=== PATIENT | female | born 1970 | race Caucasian/White ===

== ENCOUNTER 2022-05-03 10:45 | Outpatient (RCR) | payer OTHER, SELFPAY | END 2022-06-30 15:08 | disposition home or self-care (01) | PROVIDERS: PCP Family Medicine; Visit Provider Orthopaedic Surgery | DX: M25.562 Pain in left knee (principal); Z51.89 Encounter for other specified aftercare | CPT/HCPCS: 97110; 97140; 97162 ==

== ENCOUNTER 2022-05-12 10:37 | Outpatient (CLI) | payer OTHER, SELFPAY | END 2022-05-12 10:38 | disposition home or self-care (01) | LOC: OP CLINIC 10:38 | PROVIDERS: PCP Family Medicine; Visit Provider Surgery | DX: Z12.11 Encounter for screening for malignant neoplasm of colon (principal); K63.5 Polyp of colon; K62.1 Rectal polyp; Z83.71 Family history of colonic polyps | CPT/HCPCS: 45385; 88305; 99153; J1200; J2250; J3010 ==

== ENCOUNTER 2022-05-17 19:09 | Outpatient (CLI) | payer OTHER, SELFPAY ==
--- NOTE | 2022-05-17 19:30 | CRLHL7_ITS ---
For Patients: As a result of the Century Cures Act, medical imaging exams and procedure reports are released immediately into your electronic medical record. You may view this report before your referring provider. If you have questions, please contact your health care provider. BILATERAL SCREENING MAMMOGRAM WITH COMPUTER-AIDED DETECTION TECHNIQUE: CC and MLO views were obtained. These mammographic images have been obtained using full-field digital technique. These mammographic images were interpreted with the benefit of computer-aided detection. COMPARISON FILM: 10/24/19, 12/18/17, 03/09/16. FINDINGS: There are scattered areas of fibroglandular density IMPRESSION: There is no radiographic evidence for malignancy. ASSESSMENT: BI-RADS Category 1: Negative RECOMMENDATION: Routine screening mammogram in 1 year. A lay language report of this examination will be provided to the patient. Fouzia Sanchez M.D. Diagnostic/Breast Radiologist [email or web address] KERRI/Dictated by: Fouzia Sanchez MD @ 05/18/2022 8:48:00 AM (Electronically Signed)
== END 2022-05-17 19:10 | disposition home or self-care (01) ==
LOC: MAMMO 19:09
PROVIDERS: PCP Family Medicine; Visit Provider Family Medicine
DX: Z12.31 Encounter for screening mammogram for malignant neoplasm of breast (principal)
CPT/HCPCS: 77063; 77067

== ENCOUNTER 2023-07-03 09:43 | Outpatient (CLI) | payer OTHER, SELFPAY ==
--- NOTE | 2023-07-03 11:09 | W.ANESCHARGE ---
Anesthesia Charges Start Date/Time Anesthesia Start Date: 07/03/23 Anesthesia Start Time: 11:00 Stop Date/Time Anesthesia Stop Date: 07/03/23 Anesthesia Stop Time: 12:00
--- NOTE | 2023-07-03 12:15 | W.ANESCHARGE ---
Anesthesia Charges Start Date/Time Anesthesia Start Date: 07/03/23 Anesthesia Start Time: 11:00 Stop Date/Time Anesthesia Stop Date: 07/03/23 Anesthesia Stop Time: 12:00
== END 2023-07-03 09:44 | disposition home or self-care (01) ==
PROVIDERS: PCP Family Medicine; Visit Provider Surgery
DX: Z86.010 Personal history of colon polyps (principal); Z09 Encounter for follow-up examination after completed treatment for conditions other than malignant neoplasm
CPT/HCPCS: 00811; 45378; J2405; J2704

== ENCOUNTER 2023-07-04 12:50 | Emergency (ER) | payer OTHER, SELFPAY ==
--- NOTE | 2023-07-04 13:06 | ED_ITS ---
HPI - General Adult General Time Seen by Provider: 13:06 Date Seen: 07/04/23 Chief complaint: GI Bleed Stated complaint: Post colonoscopy bleeding Time Seen by Provider: 07/04/23 12:53 History of Present Illness HPI narrative: Liseth is a 53-year-old female, with depression anxiety, 4 sessile serrated adenomas removed by colonoscopy here 05/05, iron deficiency anemia, migraine headaches, chronic constipation presents emergency department via private car and self with post colonoscopy bleeding. Patient states she had a colonoscopy done here yesterday, no biopsies were taken, proximal descending colon there was a subcutaneous hematoma, patient went home, since then patient has had rectal bleeding on every bowel movement, measuring around 1 cup since yesterday, no clots, originally it was bright red now it is darker, last bowel movement was 07/02, she has not had a bowel movement, she has urge to go, but only blood no bowel movement. She has not been passing gas. Patient has been feeling a little lightheaded this morning, she has been eating and drinking but less. No associated nausea vomiting, normal urinary habits. No fevers. No back pain, she has had some left upper quadrant tenderness, crampy in nature since the colonoscopy. Last years colonoscopy she did not have this much bleeding. She also has a left-sided migraine developing. No other concerns at this time. Related Data Home Medications Medication Instructions Recorded Confirmed buspirone 10 mg tablet 10 mg PO BID 03/25/22 07/04/23 multivitamin 1 tab PO QDAY 03/25/22 07/04/23 quetiapine 25 mg tablet 12.5 mg PO QDAY 03/25/22 07/04/23 venlafaxine 75 mg capsule,extended 1 mg PO DAILY 03/25/22 07/04/23 release 24 hr Previous Rx's Medication Instructions Recorded hydrocortisone 2.5 % topical cream 1 applic [place] BID PRN itching #30 04/07/22 with perineal applicator grams (Anusol-HC) montelukast 10 mg tablet 10 mg PO .Bedtime #90 tabs 04/03/23 Allergies Allergy/AdvReac Type Severity Reaction Status Date / Time morphine Allergy Intermediate internal Verified 07/04/23 13:05 itch Review of Systems Status of ROS: Reports: 10 or more systems reviewed and unremarkable except as noted in History and below [facility] Medical History Swelling of lower extremity ?M79.89 - Other specified soft tissue disorders (ICD-10) Migraine headache ?G43.909 - Migraine, unspecified, not intractable, without status migrainosus (ICD-10) Insomnia ?G47.00 - Insomnia, unspecified (ICD-10) History of iron deficiency anemia ?Z86.2 - Personal history of diseases of the blood and blood-forming organs and certain disorders involving the immune mechanism (ICD-10) Elevated blood pressure reading without diagnosis of hypertension (2019) ?R03.0 - Elevated blood-pressure reading, without diagnosis of hypertension (ICD-10) Depression (03/06/13) ?F32.A - Depression, unspecified (ICD-10) Chronic pain (07/2020) ?G89.29 - Other chronic pain (ICD-10) Chronic constipation ?K59.09 - Other constipation (ICD-10) Basal cell carcinoma (BCC) (2001) ?C44.91 - Basal cell carcinoma of skin, unspecified (ICD-10) Anxiety disorder ?F41.9 - Anxiety disorder, unspecified (ICD-10) Surgical History (Updated 07/04/23 @ 15:47 by Serafin Prado MD) History of tonsillectomy (1972) ?Z90.89 - Acquired absence of other organs (ICD-10) History of left knee replacement (2015) ?Z96.652 - Presence of left artificial knee joint (ICD-10) History of section (2001) ?Z98.891 - History of uterine scar from previous surgery (ICD-10) Basal cell carcinoma of face (2002) ?C44.310 - Basal cell carcinoma of skin of unspecified parts of face (ICD-10) Family History (Updated 03/24/22 @ 16:19 by Matt Hong) Mother Alzheimers disease Type 2 diabetes mellitus Maternal Grandmother Type 1 diabetes mellitus Family/Other Fibromyalgia Mental disorder Father Myocardial infarction, Onset Age: 70 Brother Osteoarthritis Other Uterine cancer Social History (Updated 06/23/23 @ 16:03 by Huma Johnson MD) Narrative: , [employer] [place], 2 kids, older CP, ADHD exercises 3-4 times per week- stationary bike, yoga non-smoker does not drink alcohol Smoking Status: Never smoker Do you use any of these nicotine containing products: None Second hand tobacco smoke exposure: No How often do you have a drink containing alcohol: never How often do you have six or more drinks on one occasion: Never AUDIT-C Alcohol total score: 0 Non-prescribed substance use: denies use Little interest or pleasure in doing things: more than half the days Feeling down, depressed, or hopeless: several days service: No Exam Narrative: Exam Narrative: General: No obvious distress sitting comfortably, nontoxic in appearance HEENT: Pupils equal round reactive to light, extraocular muscles intact Neck: Supple full range of motion Lungs: Clear to auscultation bilaterally Heart: Normal sinus rhythm, S1-S2 Abdomen: Soft, mild tenderness to palpation the left upper quadrant area, bowel sounds are present, no rebound or guarding Muscle skeletal: +5 strength upper lower extremities Neuro: Alert awake and oriented x3 Const: Vital Signs, click to edit/add: Vital Signs - 24 hr 07/04/23 13:09 Temperature 98 F Pulse Rate [Pulse Oximeter] 91 Respiratory Rate 16 Blood Pressure [Ri ght Upper Arm] 171/105 H Pulse Oximetry 97 Oxygen Delivery Me thod Room Air Course Course ED Course: 1:15 PM: AIDET performed, vitals show mildly elevated blood pressure will continue to monitor, workup will include CBC, CMP, orthostatics, IV placed, 0.9 normal saline bolus, will hold on Toradol until hemoglobin returned for her pain, will obtain XR abdomen decubitus and flat upright rule out less likely perforation. Will also reach out to Dr. Real General surgery who performed the colonoscopy, Patient was in agreement. Differential diagnosis include but not limited to, upper or lower GI bleed, constipation, internal or external hemorrhoids, bowel perforation, less likely colitis, Meckel's diverticulum or malignancy. Reevaluation(s) Time of Reevaluation #1: 13:44 Reevaluation #1: Patient had a bowel movement during her stay in the emergency department, no stool, to small clots, minimal bleeding. Reevaluation #2: CBC showed hemoglobin stable at 11.0, no comparisons, metabolic panel within normal limits, imaging showed no acute free air, spoke with Dr. Real, general surgery, she reviewed imaging and labs, she recommended can you to monitor, this was discussed with patient, she received a above care and did well. Time of Reevaluation #3: 15:56 Reevaluation #3: At XR abdomen decubitus and flat upright: Impression: No acute findings. If there is ongoing clinical concern based on the patient`s clinical status, CT is suggested for further evaluation. Patient was updated on her imaging results, plan would be to discharge, blood pressure improved during her stay she will follow-up with her primary care provider over the next 7-10 days, return precautions given. Vital Signs Vital signs: Initial Vital Signs Temperature 98 F 07/04/23 13:09 Temperature Source Oral 07/04/23 13:09 Pulse Rate 91 07/04/23 13:09 Pulse Rhythm Regular 07/04/23 13:09 Pulse Strength 3+ Normal 07/04/23 13:09 Respiratory Rate 16 07/04/23 13:09 Blood Pressure 171/105 H 07/04/23 13:09 Blood Pressure Mean 127 H 07/04/23 13:09 Blood Pressure Position Sitting 07/04/23 13:09 Pulse Oximetry 97 07/04/23 13:09 Oxygen Delivery Method Room Air 07/04/23 13:09 Vital Signs Temperature 98 F 07/04/23 13:09 Pulse Rate 91 07/04/23 13:09 Respiratory Rate 16 07/04/23 13:09 Blood Pressure 171/105 H 07/04/23 13:09 Pulse Oximetry 97 07/04/23 13:09 Oxygen Delivery Method Room Air 07/04/23 13:09 Temperature 98 F 07/04/23 13:09 Pulse Rate 91 07/04/23 13:09 Respiratory Rate 16 07/04/23 13:09 Blood Pressure 171/105 H 07/04/23 13:09 Pulse Oximetry 97 07/04/23 13:09 Oxygen Delivery Method Room Air 07/04/23 13:09 Medications Administered Medications: Discontinued Medications Generic Name Dose Route Start Last Admin Trade Name Freq PRN Reason Stop Dose Admin Acetaminophen 1,000 mg 07/04/23 13:54 07/04/23 14:00 Acetaminophen 500 Mg Tablet PO 07/04/23 13:55 1,000 mg ONCE ONE Administration Medical Decision Making Lab Data Labs: Lab Results 07/04/23 Range/Units 13:34 WBC 5.64 (4.50-11.00) K/uL RBC 3.89 L (4.00-5.20) m/uL Hgb 11.0 L (12.0-16.0) gm/dL Hct 34.6 (33.0-51.0) % MCV 89 (80-100) fL MCH 28 (26-34) pg MCHC 32 (32-36) gm/dL RDW Coeff of Sindi 15.0 (11.5-15.5) % Plt Count 279 (140-440) K/uL Neut % (Auto) 59.4 (42.0-72.0) % Lymph % (Auto) 32.8 (20-44) % [place] % (Auto) 6.0 (0.0-11.0) % Eos % (Auto) 1.4 (0.0-7.0) % Baso % (Auto) 0.4 (0.0-3.0) % Neut # (Auto) 3.35 (1.7-7.0) K/uL Lymph # (Auto) 1.85 (0.90-2.90) K/uL [place] # (Auto) 0.30 (0.00-0.90) K/UL Eos # (Auto) 0.08 (0.00-0.50) K/uL Baso # (Auto) 0.02 (0.00-0.30) K/uL Abs Immat Gran (auto) 0.00 (0.00-0.30) K/uL Imm/Tot Granulo (auto) 0.0 % Sodium 141 (135-149) mmol/L Potassium 3.6 (3.6-5.1) mmol/L Chloride 104 (96-114) mmol/L Carbon Dioxide 26 (20-32) mmol/L Anion Gap 11 (7-15) mEq/L BUN 9 (7-30) mg/dL Creatinine 0.6 (0.5-1.5) mg/dL Estimated Creat Clear 103.02 Estimated GFR 106 ml/min Glucose 145 H (60-115) mg/dL Calcium 9.2 (8.4-10.6) mg/dL Total Bilirubin 0.2 (0.1-1.5) mg/dL AST 47 H (12-35) U/L ALT 36 H (4-35) U/L Alkaline Phosphatase 87 (40-150) U/L Total Protein 7.2 (6.0-8.3) g/dL Albumin 4.5 (3.3-5.0) g/dL Discharge Plan Discharge Clinical Impression: Rectal bleeding, History of colonoscopy Patient Disposition: Home, Self-Care Condition: Improved Instructions: Rectal Bleeding (ED) Activity Level: No Restrictions Prescriptions: No Action venlafaxine 75 mg capsule,extended release 24hr 1 mg PO DAILY multivitamin Tablet 1 tab PO QDAY buspirone 10 mg tablet 10 mg PO BID quetiapine 25 mg tablet 12.5 mg PO QDAY hydrocortisone [Anusol-HC] 2.5 % cream with perineal applicator 1 applic AK BID PRN (Reason: itching) Qty: 30 3RF montelukast 10 mg tablet 10 mg PO .Bedtime Qty: 90 0RF Follow Up/Referrals: Huma Johnson MD [Primary Care Provider] - Stand Alone Forms: [email or web address] Info Instructions
[2023-07-04 13:09] VITALS: BP 171/105; PULSE 91; RESP 16; TEMP 36.6; O2SAT 97; BMI 25.1
--- NOTE | 2023-07-04 13:23 | CRLHL7_ITS ---
For Patients: As a result of the Century Cures Act, medical imaging exams and procedure reports are released immediately into your electronic medical record. You may view this report before your referring provider. If you have questions, please contact your health care provider. Indication: Recent colonoscopy, free air (sic) Technique: Two views Comparison: None Findings: Nondilated bowel. No evidence of pneumoperitoneum on this radiographic examination of the abdomen. Clear lung bases. Unremarkable osseous structures. No pathologic calcifications. Impression: No acute findings. If there is ongoing clinical concern based on the patient`s clinical status, CT is suggested for further evaluation. Dictated by Rehan Hanna MD @ 07/04/2023 2:53:11 PM (Electronically Signed)
[2023-07-04 13:43] LABS: Basophils Absolute Auto 0.02 K/uL (0.00-0.30); Basophils Percent Auto 0.4 % (0.0-3.0); Eosinophils Absolute Auto 0.08 K/uL (0.00-0.50); Eosinophils Percent Auto 1.4 % (0.0-7.0); Hematocrit 34.6 % (33.0-51.0); Lymphocytes Absolute Auto 1.85 K/uL (0.90-2.90); Lymphocytes Percent Auto 32.8 % (20-44); Mean Corpuscular HGB Conc 32 gm/dL (32-36); Mean Corpuscular Hemoglobin 28 pg (26-34); Mean Corpuscular Volume 89 fL (80-100); Neutrophils Absolute Auto 3.35 K/uL (1.7-7.0); Neutrophils Percent Auto 59.4 % (42.0-72.0); Platelet Count* 279 K/uL (140-440); Red Blood Count 3.89 m/uL (4.00-5.20); Slide Review Reflex No; White Blood Count* 5.64 K/uL (4.50-11.00)
[2023-07-04 13:55] LABS: Albumin* 4.5 g/dL (3.3-5.0); Chloride* 104 mmol/L (96-114); Potassium* 3.6 mmol/L (3.6-5.1); Sodium* 141 mmol/L (135-149)
[2023-07-04 13:57] LABS: Bilirubin Total* 0.2 mg/dL (0.1-1.5); Creatinine* 0.6 mg/dL (0.5-1.5); Est. Creatinine Clearance* 103.02; Estimated Glomerular Filt Rate 106 ml/min
[2023-07-04 13:58] LABS: Alanine Aminotransferase* 36 U/L (4-35); Alkaline Phosphatase* 87 U/L (40-150); Anion Gap 11 mEq/L (7-15); Aspartate Amino Transferase* 47 U/L (12-35); Blood Urea Nitrogen* 9 mg/dL (7-30); Calcium* 9.2 mg/dL (8.4-10.6); Carbon Dioxide* 26 mmol/L (20-32); Glucose* 145 mg/dL (60-115); Total Protein* 7.2 g/dL (6.0-8.3)
[2023-07-04] MEDS: ACETAMINOPHEN 500 MG TABLET 1000 MG PO (14:00)
== END 2023-07-04 16:10 | disposition home or self-care (01) ==
PROVIDERS: Emergency Provider Student in an Organized Health Care Education/Training Program; PCP Family Medicine
DX: K62.5 Hemorrhage of anus and rectum (principal)
CPT/HCPCS: 36415; 74019; 80053; 85025; 99283; 99284; A9270

== ENCOUNTER 2023-07-12 08:24 | Outpatient (CLI) | payer OTHER, SELFPAY ==
--- NOTE | 2023-07-12 09:00 | CRLHL7_ITS ---
For Patients: As a result of the Century Cures Act, medical imaging exams and procedure reports are released immediately into your electronic medical record. You may view this report before your referring provider. If you have questions, please contact your health care provider. INDICATION: Bloating. Constipation. Recent incomplete colonoscopy. Possible hematoma in the descending colon. TECHNIQUE: Contrast-enhanced CT of the abdomen and pelvis. 79 cc Isovue administered. FINDINGS: Clear included lung bases. The liver, spleen, pancreas, gallbladder, both adrenal glands and kidneys are within normal limits. Normal caliber abdominal aorta and iliac arteries. Normal inferior vena cava. No ascites or lymphadenopathy. The urinary bladder is largely decompressed. The uterus is unremarkable. There appears to be a moderately large posterior right adnexal cyst, image 107 series 2, presumably a functional or physiologic ovarian cyst measuring 3.8 x 5.3 cm. Ultrasound might be helpful for further characterization. There is a large amount of colonic stool indicating constipation. Either in or near the splenic flexure of the colon there is a focal area of mural thickening/edema, image 37 series 2, and image 29 series 4. This could reflect a hematoma from recent colonoscopy. Focal infection or inflammation would be difficult to exclude but there is no pericolonic fat stranding or fluid collection. No lymphadenopathy. The stomach and duodenum are unremarkable. No hernia. The included skeleton is unremarkable. These findings were discussed briefly with Dr. Stan Stevens at 4:15 on July 13, 2023. IMPRESSION: 1. Colonic constipation. 2. Focal area of mural edema or thickening in or near the splenic flexure or proximal descending colon may reflect mural hematoma. Localized infection or inflammation could not be entirely excluded on the basis of this scan alone. Clinically however it is more likely a hematoma. 3. 3.8 x 5.3 cm cyst posterior right hemipelvis likely of ovarian origin. Ultrasound would be helpful for further characterization. Please note that all CT scans at this facility use dose modulation, iterative reconstruction, and/or weight-based dosing when appropriate to reduce radiation dose to as low as reasonably achievable. Dictated by Marlon Bahena MD @ 07/13/2023 4:25:09 PM (Electronically Signed)
== END 2023-07-12 08:25 | disposition home or self-care (01) ==
LOC: CT 08:25
PROVIDERS: PCP Family Medicine; Visit Provider Surgery
DX: R14.0 Abdominal distension (gaseous) (principal); K59.00 Constipation, unspecified; N83.201 Unspecified ovarian cyst, right side; Z98.890 Other specified postprocedural states
CPT/HCPCS: 74177; Q9967

== ENCOUNTER 2023-07-25 17:00 | Outpatient (CLI) | payer OTHER, SELFPAY ==
--- NOTE | 2023-07-25 17:15 | CRLHL7_ITS ---
For Patients: As a result of the Cures Act, medical imaging exams and procedure reports are released immediately into your electronic medical record. You may view this report before your referring provider. If you have questions, please contact your health care provider. BILATERAL SCREENING MAMMOGRAM WITH COMPUTER-AIDED DETECTION AND TOMOSYNTHESIS TECHNIQUE: CC and MLO views were obtained. These mammographic images have been obtained using full-field digital technique. These mammographic images were interpreted with the benefit of computer-aided detection. Breast tomosynthesis was used in this interpretation. COMPARISON FILM: 05/17/22, 10/24/19, 12/18/17. FINDINGS: There are scattered areas of fibroglandular density. IMPRESSION: There is no radiographic evidence for malignancy. ASSESSMENT: BI-RADS Category 1: Negative RECOMMENDATION: Routine screening mammogram in 1 year. A lay language report of this examination will be provided to the patient. NESTOR BEAR M.D. Diagnostic Radiologist [email or web address] [email or web address] Transcribed: 07/26/2023, 6:[address]/Dictated by: Nestor Bear MD @ 07/26/2023 9:37:00 AM (Electronically Signed)
== END 2023-07-25 17:01 | disposition home or self-care (01) ==
LOC: MAMMO 17:01
PROVIDERS: PCP Family Medicine; Visit Provider Family Medicine
DX: Z12.31 Encounter for screening mammogram for malignant neoplasm of breast (principal)
CPT/HCPCS: 77063; 77067

== ENCOUNTER 2023-08-11 10:15 | Outpatient (CLI) | payer OTHER, SELFPAY | END 2023-08-11 10:16 | disposition home or self-care (01) | PROVIDERS: PCP Family Medicine; Visit Provider Family Medicine | DX: Z01.419 Encounter for gynecological examination (general) (routine) without abnormal findings (principal); D64.9 Anemia, unspecified; R73.9 Hyperglycemia, unspecified; R79.89 Other specified abnormal findings of blood chemistry; Z13.6 Encounter for screening for cardiovascular disorders | CPT/HCPCS: 80053; 80061; 82728; 84443 ==

== ENCOUNTER 2023-08-24 16:15 | Outpatient (CLI) | payer OTHER, SELFPAY ==
--- NOTE | 2023-08-24 16:00 | CRLHL7_ITS ---
For Patients: As a result of the Century Cures Act, medical imaging exams and procedure reports are released immediately into your electronic medical record. You may view this report before your referring provider. If you have questions, please contact your health care provider. INDICATION: Cyst seen on CT. TECHNIQUE: Transabdominal and transvaginal scanning was performed. Transvaginal scanning was performed to optimally evaluate the endometrium and adnexa. COMPARISON: Abdomen/pelvis CT of 07/12/2023 FINDINGS: The postmenopausal uterus is normal in size and shape. The uterus measures 7.9 x 3.2 x 4.4 cm. No uterine mass is evident. The endometrial stripe is normal in thickness at 2 mm. The left ovary is not visualized. A simple 6.3 x 4.7 x 3.6 cm right adnexal cyst is demonstrated. This is presumably ovarian in origin. This appears to be unchanged from the previous CT. A normal right ovary is not seen apart from this lesion. No adnexal mass is evident. No free fluid is demonstrated. IMPRESSION: Simple-appearing 6.3 x 4.7 x 3.6 cm right adnexal cyst, presumably ovarian. This lesion has not changed appreciably in comparison to the previous CT and is also most certainly benign. A four-month follow up ultrasound is recommended to assure stability. Dictated by Abel Haile MD @ 08/25/2023 2:18:22 PM (Electronically Signed)
--- OUTSIDE RECORDS SUMMARY | 2023-08-24 16:27 | XMS_ITS | Clinical Summary ---
Author Name Unknown Organization [facility] Address [address] [place] [address] Care Team Providers Care Medical And Scientific Illustrator Name Role Phone Amadna Santiago MD Primary Care Provider [phone] Source Comments You are receiving this document as you are listed as the primary care provider,follow-up provider, or the patient has been referred to you for consultation.This is in compliance with the Medicare and[facility] Hospital[facility] EHR Incentive Program,which states Providers who transition their patient to another setting of careor provider of care or refers their patient to another provider of care shouldprovide summary care record for each transition of care or referral. [employer] [facility] Allergies No known active allergies Medications Medication Sig Dispensed Refills Start Date End Date Status Magnesium Oxide 400 MGIndications:Von martinez without aura, without mention of intractable migraine without mention of status migrainosus Take 400 mg by mouth two times a day. 120 Tab 3 05/04/2010 Active amitriptyline (AKA ELAVIL) 25 MG tabletIndications :Migraine without aura, without mention of intractable migraine without mention of status migrainosus Take 1 Tab by mouth daily at bedtime. 30 Tab 6 05/04/2010 Active prochlorPERAZINE (AKA COMPAZINE) 25 MG suppositoryIndica tions:Migraine without aura, without mention of intractable migraine without mention of status migrainosus Insert 1 Suppository rectally every 12 hours as needed for Nausea and Vomiting. 12 Suppository 0 05/04/2010 Active fluoxetine (PROZAC) 20 MG capsule Take 3 Caps by mouth daily. 0 05/04/2010 Active sumatriptan (IMITREX) 100 MG tabletIndications :Migraine without aura, without mention of intractable migraine without mention of status migrainosus Take 1 Tab by mouth once as needed. Take at onset of headaches. May repeat X 1 in 2 hours if needed. Max 2 tabs/day or 4 tabs/wk. 12 Tab 0 07/17/2012 Active FLUoxetine (AKA PROZAC) 20 MG capsule Take 3 capsules by mouth daily (every 24 hours). LW Addl Instr:Indicated for: Depression 30 3 11/02/2010 Active traZODone (AKA DESYREL) 50 MG tablet Take 0.5-2 tablets by mouth nightly. LW Addl Instr:DENIED- NEEDS AN APPOINTMENT MADE DR SAXENA NO LONGER AT [facility] 1 0 09/22/2009 Active Multiple Vitamins-Minerals (MULTIVITAMIN OR) Take 1 tablet by mouth daily (every 24 hours). 0 10/30/2008 Active Lactobacillus (ACIDOPHILUS) daily as needed. 0 10/30/2008 Activ e fluoxetine (AKA PROZAC) 40 MG capsuleIndication s:Plantar fasciitis Take 40 mg by mouth 2 times daily. 0 02/25/2013 Active Active Problems Problem Noted Date Diagnosed Date Avulsion fracture of talus 02/07/2014 Immunizations Name Administration Dates Next Due Rubella 09/12/1994 Social History Tobacco Use Types Packs/Day Years Used Date Smoking Tobacco: Never Smokeless Tobacco: Never Sex and Gender Information Value Date Recorded Sex Assigned at Not on file Gender Identity Not on file Sexual Orientation Not on file Last Filed Vital Signs Vital Sign Reading Time Taken Comments Blood Pressure 114/68 05/04/2010 1:32 PM CDT Pulse 80 05/04/2010 1:32 PM CDT Temperature 36.8 ??C (98.2 ??F) 04/15/2008 7:06 PM CD T C: 36.8 C Respiratory Rate 14 04/15/2008 7:06 PM CDT Oxygen Saturation - - Inhaled Oxygen Concentration - - Weight 65.4 kg (144 lb 3.2 oz) 05/04/2010 1:32 P M CDT Height 170.8 cm (5' 7.25) 05/04/2010 1:32 PM CD T Body Mass Index 22.42 05/04/2010 1:32 PM CDT Plan of Treatment Health Maintenance Due Date Last Done Comments Cervical Cancer Screening Due 1968 Colon Cancer Screening Plan Due 1968 Hep C Screening (Preventive Services) 1968 HepB (1) 1968 Mammogram 1968 COVID-19 Vaccine (#1) 1968 HIV Screening (Preventive Services) 1984 Adult Preventive Visit 1986 Cholesterol 2013 Influenza (#1) 2023 05/25/2021, 11/0 11/2019, 05/08/2020, Additional history exists DTaP/Tdap/Td (4 - Tdap) 08/28/2029 08/28/19, 08/05/2015, 11/20/2008 Zoster/Shingles Completed 06/08/2019, 03/16/2019 HepA Aged Out No longer eligi ble based on patient's age to complete this topic Hib Aged Out No longer eligi ble based on patient's age to complete this topic IPV (Polio) Aged Out No longer eligi ble based on patient's age to complete this topic MCV4 Aged Out No longer eligi ble based on patient's age to complete this topic Pneumococcal Aged Out No longer eligi ble based on patient's age to complete this topic Care Teams Medical And Scientific Illustrator Relationship Specialty Start Date End Date Amanda Santiago MD [address] [place] [id number] PCP - General 09/02/14
== END 2023-08-24 16:16 | disposition home or self-care (01) ==
LOC: US 16:15
PROVIDERS: PCP Family Medicine; Visit Provider Family Medicine
DX: N83.201 Unspecified ovarian cyst, right side (principal)
CPT/HCPCS: 76830; 76856; 93976

== ENCOUNTER 2023-12-22 14:48 | Outpatient (CLI) | payer OTHER, SELFPAY ==
--- OUTSIDE RECORDS SUMMARY | 2023-12-22 14:51 | XMS_ITS | Clinical Summary ---
Author Name Unknown Organization [facility] Address [address] [place] [address] Care Team Providers Care Store Specialist Name Role Phone Amanda Santiago MD Primary Care Provider [phone] Source Comments You are receiving this document as you are listed as the primary care provider,follow-up provider, or the patient has been referred to you for consultation.This is in compliance with the Medicare andCity Hospital[facility] EHR Incentive Program,which states Providers who transition their patient to another setting of careor provider of care or refers their patient to another provider of care shouldprovide summary care record for each transition of care or referral. [facility] Allergies No known active allergies Medications Medication [...] capsule Take 3 Caps by mouth daily. 05/04/2010 Active sumatriptan (IMITREX) 100 MG tabletIndications [...] APPOINTMENT MADE DR SAXENA NO LONGER AT [facility] 1 09/22/2009 Active Multiple Vitamins-Minerals (MULTIVITAMIN OR) Take 1 tablet by mouth daily (every 24 hours). 10/30/2008 Active Lactobacillus (ACIDOPHILUS) daily as needed. 10/30/2008 Activ e fluoxetine (AKA PROZAC) 40 MG capsuleIndication s:Plantar fasciitis Take 40 mg by mouth 2 times daily. 02/25/2013 Active Active Problems Problem Noted Date [...] 1968 Hep C Screening (Preventive Services) 1968 Mammogram 1968 HIV Screening (Preventive Services) 1984 Adult Preventive Visit 1986 HepB (1) 1987 Cholesterol 2013 COVID-19 Vaccine ( season) 2023 05/29/2021, 11/05/2020, 10/15/2020 Influenza (Season Ended) 2024 021, 06/17/2020, 05/08/2020, Additional history exists DTaP/Tdap/Td (4 - [...] age to complete this topic Care Teams Store Specialist Relationship Specialty Start Date End Date Amanda Santiago MD [address] [place] [id number] PCP - General 09/02/14
--- OUTSIDE RECORDS SUMMARY | 2023-12-22 14:52 | XMS_ITS | Continuity of Care Document ---
Author Name Unknown Organization [facility] Address [address] [address] [place] [address] Phone Care Team Providers Care Power Mule Operator Name Role Phone Wayne Car MD Unavailable Unavailable Allergies, Adverse Reactions, Alerts Substance Reaction Status Criticality morphine ItchingItching Active No Informatio n Medications Medication Instructions Dosage Effective Dates (start - stop) Status Comments montelukast 10 mg tablet take 1 tablet by oral route every day in the evening 10 MG - Active venlafaxine ER 75 mg tablet,extended release 24 hr take 1 tablet by oral route every day in the morning at the same time each day with food 75 MG - Active venlafaxine ER 37.5 mg tablet,extended release 24 hr take 1 tablet by oral route every day in the morning at the same time each day with food 37.5 MG - Active buspirone 10 mg tablet take 1 tablet by oral route 2 times every day 1 tablet - Active Multiple Vitamin Tab take 1 tablet by ORAL route every day with food 1.00 tablet - Active Miralax 17 gram/dose Oral Powder take 8 Milligram (9.0667G) by ORAL route every day powder mixed with 8 oz. water, juice, soda, coffee, or tea 9.0667 G - Active Procedures Procedure Date Offic/outpt E&m [facility] Colonoscopy Flex; Dx (sep Pro) 11 Ugi Endo; W/bx 1/mx Level Iv-surg Path Gross/micro 11 Offic/outpt E&m [facility] Routine Serum Collection [id number] Advance Directives Directive Yes / No Effective Date File Name No Information Encounters Encounter Description Practice Location Reason(s) For Visit Diagnoses Date Provider Providers Copied on Encounter [facility], [address] [address], [place], [id number], [place] tel:[phone] [facility] No Information 4 Josep Black. [address] [facility] [address], [place], [id number], [place]. tel:[phone] Offic/outpt E&m [facility], [address] [address], [place], [id number], [place] tel:[phone] [facility] GI Symptoms or Concerns (chief complaint) Hx of colonic polypsEncoun ter for screening colonoscopy 3 Virgilio Eric. [address] [facility], [facility] [address], [place], [id number], [place]. tel:[phone] Referring Provider: Brea Fowler, [address] [facility] , [place], [address]. tel:[phone] [facility], [address] [address], [place], [id number], [place] tel:[phone] [facility] No Information 3 Red Chapa. [address] [facility], [facility] [address], [place], [id number], [place]. tel:[phone] [facility], [address] [address], [place], [id number], [place] tel:[phone] [facility] Iron Deficiency AnemiaIron Deficiency AnemiaConsti pation Unspecified 1 No Information Referring Provider: Ronnell Cramer, [address], [place], [address]. tel:[phone] Offic/outpt E&m [facility], [address] [address], [place], [place], [id number], tel:[phone] [facility] Iron DeficiencyAne nick (chief complaint)Con stipation (chief complaint)Hem orrhoids (chief complaint) Iron Deficiency AnemiaConsti pation UnspecifiedI nternal Hemorrhoids 1 Alexandro Fernandez. [address] [facility] [address], [place], [place], [id number], [place]. tel:[phone] Referring Provider: Ronnell Cramer, [address] [facility] [address], [place], [address]. tel:[phone] Family History Family Member Type Diagnosis Age At Onset First degree family history Problem (finding) No history of Ulcerative Colitis Father Problem (finding) Cancer, basal cell Father Problem (finding) Alcoholism First degree family history Problem (finding) No history of Cancer, colon Mother Problem (finding) Cancer, uterine First degree family history Problem (finding) No history of Crohn's Son Problem (finding) Celiac disease Daughter Problem (finding) Celiac disease Father Problem (finding) Cancer, skin First degree family history Problem (finding) malignant neoplasm of uterus First degree family history Problem (finding) No Family history of No history of Colon Polyps Immunizations Vaccine Date Status Comments Afluria Qd administered Note: [facility] bi-directional interface ; Source: Other Registry SARS-COV-2 (COVID-19) vaccin e, mRNA, spike protein, LNP, preservative free, dede-sucrose, 30 mcg/0.3 mL dose administered Note: [facility] bi-direct ional interface ; Source: Other Registry Afluria Qd administered Note: [facility] bi-directional interface ; Source: Other Registry SARS-COV-2 (COVID-19) vaccin e, mRNA, spike protein, LNP, bivalent, preservative free, 50 mcg/0.5 mL or 25 mcg/0.25 mL dose administered Note: [facility] bi-direct ional interface ; Source: Other Registry SARS-COV-2 (COVID-19) vaccin e, mRNA, spike protein, LNP, preservative free, 100 mcg/0.5mL dose or 50 mcg/0.25mL dose administered Note: [facility] bi -directional interface ; Source: Other Registry SARS-COV-2 (COVID-19) vaccin e, mRNA, spike protein, LNP, preservative free, 30 mcg/0.3mL dose administered Note: [facility] bi-direct ional interface ; Source: Other Registry Influenza, injectable, Madin Austin Canine Kidney, quadrivalent with preservative administered Note: [facility] bi- directional interface ; Source: Other Registry SARS-COV-2 (COVID-19) vaccin e, mRNA, spike protein, LNP, preservative free, 30 mcg/0.3mL dose administered Note: [facility] bi-direct ional interface ; Source: Other Registry SARS-COV-2 (COVID-19) vaccin e, mRNA, spike protein, LNP, preservative free, 30 mcg/0.3mL dose administered Note: [facility] bi-direct ional interface ; Source: Other Registry Afluria Qd administered Note: [facility] bi-directional interface ; Source: Other Registry Influenza administered Note: [facility] bi-d irectional interface ; Source: Other Registry tetanus toxoid, reduced diphtheria toxoid, and acellular pertussis vaccine, adsorbed administered Note: [facility] b i-directional interface ; Source: Other Registry zoster vaccine recombinant administered N ote: [facility] bi-directional interface ; Source: Other Registry zoster vaccine recombinant administered N ote: [facility] bi-directional interface ; Source: Other Registry Influenza administered Note: [facility] bi-d irectional interface ; Source: Other Registry Influenza administered Note: [facility] bi-d irectional interface ; Source: Other Registry tetanus toxoid, reduced diphtheria toxoid, and acellular pertussis vaccine, adsorbed administered Note: [facility] b i-directional interface ; Source: Other Registry Afluria Qd administered Note: [facility] bi-directional interface ; Source: Other Registry Influenza, seasonal, injecta ble, preservative free administered Note: [facility] bi-direct ional interface ; Source: Other Registry influenza virus vaccine, unspecified formulation administered Note: [facility] bi-di rectional interface ; Source: Other Registry influenza virus vaccine, yuliana e, attenuated, for intranasal use administered Note: [facility] bi- directional interface ; Source: Other Registry influenza virus vaccine, yuliana e, attenuated, for intranasal use administered Note: [facility] bi- directional interface ; Source: Other Registry Novel [id number], all formulations administered Note: [facility] bi-direct ional interface ; Source: Other Registry tetanus toxoid, reduced diphtheria toxoid, and acellular pertussis vaccine, adsorbed administered Note: [facility] b i-directional interface ; Source: Other Registry Influenza, seasonal, injectable administe red Note: [facility] bi- directional interface ; Source: Other Registry Influenza, seasonal, injectable administe red Note: [facility] bi- directional interface ; Source: Other Registry Influenza, seasonal, injectable administe red Note: [facility] bi- directional interface ; Source: Other Registry Influenza, seasonal, injectable administe red Note: [facility] bi- directional interface ; Source: Other Registry Influenza, seasonal, injectable administe red Note: [facility] bi- directional interface ; Source: Other Registry Influenza, seasonal, injectable administe red Note: [facility] bi- directional interface ; Source: Other Registry rubella virus vaccine administered Note: [facility] bi-directional interface ; Source: Other Registry Payers Payer name Insurance type Covered republican ID Demarco srinivasantoma(s) [facility] [id number] Social History Type Description Quantity Date Captured Comments Sex Female Smoking Status No Information Chief Complaint And Reason For Visit No Information Reason For Referral Reason For Referral No Information Plan Of Treatment Date Type Action Status Referral Ordered: Colonoscopy Appointment date/timeframe: 12/29/2023 ordered Appointment Teiken, Liseth BOOKED History Of Present Illness Encounter Date Complaint History Of Prese nt Illness GI Symptoms or Concerns I had th e pleasure of meeting Ms. Childers taken today in clinic for consultation at the request of Dr. Ronnell Lowry for evaluation of incomplete colonoscopy. She is a pleasant 53F with hx of colon polyps and constipation. It appears that patient had a piecemeal removal of large sessile adenoma in May 2022. We do not have official records / report of this procedure. Patient was able to pull pathology report (not the colonoscopy report) on her phone which showed 4 SSAs found proximal to the rectum with 2 SSAs >1cm (one was 12mm and one was 14mm). Patient subsequently had a surveillance colonoscopy on with Dr. Real at [facility]. The colon appeared to be normal except the procedure was incomplete due to significant looping and redundant colon. The proximal extent reached was at the hepatic flexure. Patient was subsequently referred to us for further evaluation and management.Per our records, Liseth did have a colonoscopy in 2010 with us which was done for constipation. The exam was complete with examination of the terminal ileum and entire colon without any abnormalities. She denies any family history of GI malignancy. No tobacco, alcohol or illicit drug use. She is otherwise healthy without any active chronic illnesses. Functional Status Date Functional Assessmen t No Information Instructions Date Instruction Additional Infor matfoster It was a pleasure me eting you, as we discussed:- We will refer you to have a double balloon enteroscopy for surveillance of colon polyps given your recent incomplete procedure- For constipation, you can try magnesium citrate or dulcolax to see if this helps in the short-term. Continue taking miralax daily.- Follow-up in clinic as needed. Related to Encounter for screening colonoscopy Assessments Type Assessment Date No Information Patient Care Teams Name Effective Dates (start - stop) Status Members No Information
--- NOTE | 2023-12-22 15:00 | US_ITS ---
Patient: JACKLYN MARQUEZ Facility:?[facility] Patient ID:?[id number] Site Patient ID:?[id number] Site :?[id number] Study:?US-Pelvis PELVIS TV-12/22/2023 3:19:51 PM Ordering Physician:?MAXIMILIANO BYRD M.D. Final Report: INDICATION: Follow-up right ovarian cyst COMPARISON: Ultrasound of the pelvis from 08/24/2023. FINDINGS: Transvaginal ultrasound examination of the female pelvis was performed. The uterus is anteverted with no evidence of mass. It measures 5.8 x 2.9 x 4.6 cm. The endometrial lining is normal in thickness at 2 mm. There is stable appearance of the moderate sized simple cyst in the right ovary measuring 5.1 x 3.7 x 5.6 centimeters, previously 6.3 x 3.6 x 4.7 centimeters. The ovary remains mildly enlarged, measuring 6.1 x 4.8 x 6.3 centimeters. The left ovary can not be identified. There is normal color and pulse doppler flow in the right ovary There is no sign of free fluid in the pelvis. IMPRESSION: 1. Stable moderate-sized simple cyst in the right ovary measuring up to 5.1 centimeters in diameter resulting in mild enlargement of the right ovary. 2. The uterus is normal in appearance. 3. The left ovary can not be identified. Dictated by Hunter Ngo MD @ 12/22/2023 9:07:31 PM Signed by:?Hunter Ngo MD @12/22/2023 9:07:31 PM (Electronic Signature)
== END 2023-12-22 14:49 | disposition home or self-care (01) ==
LOC: US 14:49
PROVIDERS: PCP Family Medicine; Visit Provider Obstetrics & Gynecology
DX: N83.201 Unspecified ovarian cyst, right side (principal)
CPT/HCPCS: 76830; 93976

== ENCOUNTER 2024-02-22 13:28 | Observation (INO) | payer OTHER, SELFPAY ==
[2024-02-22] VITALS (7 sets, daily range): BP systolic 132–186; BP diastolic 71–118; PULSE 72–94; RESP 16–20; TEMP -13.8–36.8; O2SAT 94–98; BMI 21.9; BMI 23.5
[2024-02-22 14:15] LABS: Basophils Absolute Auto 0.03 K/uL (0.00-0.30); Basophils Percent Auto 0.5 % (0.0-3.0); Eosinophils Absolute Auto 0.05 K/uL (0.00-0.50); Eosinophils Percent Auto 0.8 % (0.0-7.0); Hematocrit 39.7 % (33.0-51.0); Immature Granulocytes Abs Auto 0.04 K/uL (0.00-0.30); Immature Granulocytes Pct Auto 0.7 %; Lymphocytes Percent Auto 18.2 % (20-44); Mean Corpuscular HGB Conc 33 gm/dL (32-36); Mean Corpuscular Hemoglobin 30 pg (26-34); Mean Corpuscular Volume 93 fL (80-100); Monocytes Percent Auto 5.2 % (0.0-11.0); Neutrophils Percent Auto 74.6 % (42.0-72.0); Platelet Count* 234 K/uL (140-440); RDW Coefficient of Variation % 13.8 % (11.5-15.5); Red Blood Count 4.28 m/uL (4.00-5.20)
--- NOTE | 2024-02-22 14:21 | CRLHL7_ITS ---
For Patients: As a result of the Century Cures Act, medical imaging exams and procedure reports are released immediately into your electronic medical record. You may view this report before your referring provider. If you have questions, please contact your health care provider. Indication: Right lower quadrant pain Technique: Transvaginal pelvic ultrasound utilizing grayscale, color flow and duplex Doppler techniques Comparison: Pelvic ultrasound December 22, 2023 Findings: Uterus: Measures 6 by 5 x 4 centimeters. Mildly heterogeneous echogenicity likely senescent changes. No cysts or masses. Endometrium: 2 millimeters in thickness. No endometrial fluid. Right ovary: Not visualized secondary to small size, atypical location or technique. No right adnexal cysts or masses. Left ovary: 5.7 x 5.9 x 5.6 centimeters in size. Minimally complex cyst with some layering echogenicities posteriorly measures 5.7 x 3.9 x 4.9 centimeters. There is appropriate color flow and duplex Doppler waveforms to the left ovary. Free fluid: None. Impression: Minimally complex LEFT ovarian cyst measuring up to 5.7 centimeters. Recommend follow-up pelvic ultrasound in 3 months to evaluate for resolution or interval increased growth. Dictated by Salvador Sykes MD @ 02/22/2024 4:28:20 PM (Electronically Signed)
[2024-02-22 14:23] LABS: Slide Review Reflex No
[2024-02-22 14:27] LABS: Chloride* 102 mmol/L (96-114)
[2024-02-22 14:28] LABS: Potassium* 3.8 mmol/L (3.6-5.1); Sodium* 137 mmol/L (135-149)
[2024-02-22 14:30] LABS: Creatinine* 0.6 mg/dL (0.5-1.5); Est. Creatinine Clearance* 103.02; Estimated Glomerular Filt Rate 106 ml/min
[2024-02-22 14:31] LABS: Anion Gap 9 mEq/L (7-15); Blood Urea Nitrogen* 14 mg/dL (7-30); Carbon Dioxide* 26 mmol/L (20-32); Glucose* 151 mg/dL (60-115)
[2024-02-22 14:35] LABS: C Reactive Protein* < 0.5 mg/dL (0.5-1.0)
--- NOTE | 2024-02-22 14:36 | ED_ITS ---
HPI - General Adult General Chief complaint: Abdominal Pain Stated complaint: R abdomen pain Time Seen by Provider: 02/22/24 14:15 Source: patient Mode of arrival: ambulatory Limitations: no limitations History of Present Illness HPI narrative: 53-year-old female coming in today complaining of right lower quadrant pain that started this morning. Nothing makes it better, movement makes it worse. She states that she has not had a bowel movement in 6 days. Patient states that she had a colonoscopy prep and has not had a bowel movement since. She denies urinary symptoms such as frequency, urgency or dysuria. No fevers or chills. She is slightly nauseated but has not vomited. Normal appetite. The car ride did not bother her. Past surgical history includes , hernia repair and partial knee replacement. Patient does have a known right-sided ovarian cyst that was last imaged on 12/22/2023. Related Data Home Medications ?Medication ?Instructions ?Recorded ?Confirmed buspirone 10 mg tablet 10 mg PO BID 03/25/22 02/22/24 multivitamin 1 tab PO QDAY 03/25/22 01/31/24 quetiapine 25 mg tablet 12.5 mg PO QDAY 03/25/22 02/22/24 venlafaxine 75 mg capsule,extended 150 mg PO DAILY 08/11/23 02/22/24 release 24 hr calcium carbonate (Calcium 600) 600 mg PO QDAY 09/11/23 01/31/24 Previous Rx's ?Medication ?Instructions ?Recorded hydrocortisone 2.5 % topical cream 1 applic GA BID PRN itching #30 04/07/22 with perineal applicator grams (Anusol-HC) montelukast 10 mg tablet 10 mg PO .Bedtime #90 tabs 10/12/23 Allergies Allergy/AdvReac Type Severity Reaction Status Date / Time morphine Allergy Intermediate internal Verified 02/22/24 15:24 itch Review of Systems Status of ROS: Reports: 10 or more systems reviewed and unremarkable except as noted in History and below [facility] Medical History (Updated 02/22/24 @ 17:43 by Jessika Yarbrough MD) Swelling of lower extremity ?M79.89 - Other specified soft tissue disorders (ICD-10) Migraine headache ?G43.909 - Migraine, unspecified, not intractable, without status migrainosus (ICD-10) Insomnia ?G47.00 - Insomnia, unspecified (ICD-10) History of iron deficiency anemia ?Z86.2 - Personal history of diseases of the blood and blood-forming organs and certain disorders involving the immune mechanism (ICD-10) Elevated blood pressure reading without diagnosis of hypertension (2019) ?R03.0 - Elevated blood-pressure reading, without diagnosis of hypertension (ICD-10) Depression (03/06/13) ?F32.A - Depression, unspecified (ICD-10) Chronic pain (07/2020) ?G89.29 - Other chronic pain (ICD-10) Chronic constipation ?K59.09 - Other constipation (ICD-10) Basal cell carcinoma (BCC) (2001) ?C44.91 - Basal cell carcinoma of skin, unspecified (ICD-10) Anxiety disorder ?F41.9 - Anxiety disorder, unspecified (ICD-10) Surgical History History of tonsillectomy (1972) ?Z90.89 - Acquired absence of other organs (ICD-10) History of left knee replacement (2015) ?Z96.652 - Presence of left artificial knee joint (ICD-10) History of section (2001) ?Z98.891 - History of uterine scar from previous surgery (ICD-10) Basal cell carcinoma of face (2002) ?C44.310 - Basal cell carcinoma of skin of unspecified parts of face (ICD-10) Family History Mother Alzheimers disease Type 2 diabetes mellitus Maternal Grandmother Type 1 diabetes mellitus Family/Other Fibromyalgia Mental disorder Father Myocardial infarction, Onset Age: 70 Brother Osteoarthritis Other Uterine cancer Social History Narrative: , [employer], 2 kids, older CP, ADHD exercises 3-4 times per week- stationary bike, yoga non-smoker does not drink alcohol What is your current living situation?: I presently have a place to live Problems where you live: no known problems In the past 12 months, utilities in danger of being shut off: no In past 12 months, lack of transportation kept you from medical appts, meetings, work, or getting things needed for daily living: no In the past 12 mos, have been you worried that your food would run out before you had money to buy more?: never true In the past 12 mos, the food you bought just didn't last and you didn't have money to buy more?: never true Smoking Status: Never smoker Do you use any of these nicotine containing products: None Second hand tobacco smoke exposure: No How often do you have a drink containing alcohol: never How often do you have six or more drinks on one occasion: Never AUDIT-C Alcohol total score: 0 Non-prescribed substance use: denies use How often does anyone, including family, friends and others, physically hurt you : never How often does anyone, including family, friends and others, insult or talk down to you: never How often does anyone, including family, friends and others, threaten you with harm: never How often does anyone, including family, friends and others, scream or curse at you: sometimes Little interest or pleasure in doing things: not at all Feeling down, depressed, or hopeless: several days service: No Exam Narrative: Exam Narrative: Well-nourished well-developed patient in no acute distress. Alert and oriented. Answers questions appropriately. Mood and affect are appropriate. Thoughts are goal oriented and rational. No tangential or magical thinking noted. Patient speaks in full sentences without needing to catch her breath. HEENT: Normocephalic atraumatic. Pupils are equally round reactive to light. Extraocular muscles are intact. Conjunctivae are moist without any icterus noted. Moist mucous membranes. Posterior pharynx is normal. Neck is soft without any lymphadenopathy or thyromegaly. No masses are appreciated. Cardiovascular: Heart is regular rate and rhythm S1 and S2 are present without any murmurs. Lungs: Clear to auscultation bilaterally no wheezes rhonchi or rales are appreciated. Patient takes deep breaths without any discomfort. Abdomen: Soft and nondistended with slightly hypoactive bowel sounds. She has right sided tenderness more in the pelvic region. She does not have pain at McBurney's point. No periumbilical pain. Extremities: Bilateral lower extremities are without edema. Normal DP and PT pulses. Skin: Well perfused without any obvious rashes. Const: Vital Signs, click to edit/add: Vital Signs - 24 hr 02/22/24 13:43 02/22/24 15:55 02/22/24 17:10 Temperature 98.3 F Pulse Rate [Pulse Oximeter] 94 81 83 Respiratory Rate 16 20 18 Blood Pressure [Ri t Upper Arm] 147/106 H 159/100 H 164/90 H Pulse Oximetry 98 98 98 Oxygen Delivery Me thod Room Air Room Air Room Air Course Course ED Course: CBC was unremarkable. Chemistries unremarkable. Glucose elevated at 151, not fasting. CRP less than 0.5. UA completely normal. Patient received 1 dose of IV Toradol. Ultrasound inconclusive as there was a lot of bowel, right ovary could not be visualized. During he ultrasound, patient became very uncomfortable, tearful and diaphoretic secondary to the amount of pain that she was in during the exam. Because of this we proceeded with an abdominal CT scan which was concerning for developing volvulus or internal hernia, although this was visualized on the left side. Did discuss the patient with Dr. Estrada who suggested observation to see if this was indeed an evolving surgical matter. Therefore patient was discussed with Dr. Crump who graciously accepts the patient for pain management and observation. Vital Signs Vital signs: Initial Vital Signs Temperature 98.3 F 02/22/24 13:43 Temperature Source Temporal Artery Scan 02/22/24 13:43 Pulse Rate 94 02/22/24 13:43 Respiratory Rate 16 02/22/24 13:43 Blood Pressure 147/106 H 02/22/24 13:43 Blood Pressure Mean 119 H 02/22/24 13:43 Blood Pressure Position Sitting 02/22/24 13:43 Pulse Oximetry 98 02/22/24 13:43 Oxygen Delivery Method Room Air 02/22/24 13:43 Vital Signs Temperature 98.3 F 02/22/24 13:43 Pulse Rate 94 02/22/24 13:43 Respiratory Rate 16 02/22/24 13:43 Blood Pressure 147/106 H 02/22/24 13:43 Pulse Oximetry 98 02/22/24 13:43 Oxygen Delivery Method Room Air 02/22/24 13:43 Temperature 98.3 F 02/22/24 13:43 Pulse Rate 83 02/22/24 17:10 Respiratory Rate 18 02/22/24 17:10 Blood Pressure 164/90 H 02/22/24 17:10 Pulse Oximetry 98 02/22/24 17:10 Oxygen Delivery Method Room Air 02/22/24 17:10 Medications Administered Medications: Discontinued Medications Generic Name Dose Route Start Last Admin Trade Name Estrada PRN Reason Stop Dose Admin Ketorolac Tromethamine 30 mg 02/22/24 15:42 02/22/24 15:45 Ketorolac 30 Mg/Ml Inj IVP 02/22/24 15:43 30 mg ONCE ONE Administration Medical Decision Making MDM Narrative Medical decision making narrative: 53-year-old female with abdominal pain, plan per above. Medical Records Medical records reviewed: Yes I reviewed the patient's medical records Lab Data Lab results reviewed: Yes I reviewed the patient's lab results Labs: Lab Results 02/22/24 02/22/24 Range/Units 14:00 14:22 WBC 6.00 (4.50-11.00) K/uL RBC 4.28 (4.00-5.20) m/uL Hgb 13.0 (12.0-16.0) gm/dL Hct 39.7 (33.0-51.0) % MCV 93 (80-100) fL MCH 30 (26-34) pg MCHC 33 (32-36) gm/dL RDW Coeff of Sindi 13.8 (11.5-15.5) % Plt Count 234 (140-440) K/uL Neut % (Auto) 74.6 H (42.0-72.0) % Lymph % (Auto) 18.2 L (20-44) % [place] % (Auto) 5.2 (0.0-11.0) % Eos % (Auto) 0.8 (0.0-7.0) % Baso % (Auto) 0.5 (0.0-3.0) % Neut # (Auto) 4.50 (1.7-7.0) K/uL Lymph # (Auto) 1.10 (0.90-2.90) K/uL [place] # (Auto) 0.30 (0.00-0.90) K/UL Eos # (Auto) 0.05 (0.00-0.50) K/uL Baso # (Auto) 0.03 (0.00-0.30) K/uL Abs Immat Gran (auto) 0.04 (0.00-0.30) K/uL Imm/Tot Granulo (auto) 0.7 % Sodium 137 (135-149) mmol/L Potassium 3.8 (3.6-5.1) mmol/L Chloride 102 (96-114) mmol/L Carbon Dioxide 26 (20-32) mmol/L Anion Gap 9 (7-15) mEq/L BUN 14 (7-30) mg/dL Creatinine 0.6 (0.5-1.5) mg/dL Estimated Creat Clear 103.02 Estimated GFR 106 ml/min Glucose 151 H (60-115) mg/dL Calcium 9.0 (8.4-10.6) mg/dL C-Reactive Protein < 0.5 L (0.5-1.0) mg/dL Urine Color Yellow (Yellow) Urine Appearance Clear (Clear) Urine pH 7.0 (5.0-8.5) Ur Specific Williams >= 1.030 (1.000-1.030) Urine Protein Negative (Negative) Urine Glucose (UA) Negative (Negative) Urine Ketones Negative (Negative) Urine Blood Negative (Negative) Urine Nitrite Negative (Negative) Urine Bilirubin Negative (Negative) Urine Urobilinogen 0.2 (0.2-1.0) Ur Leukocyte Esterase Negative (Negative) Urine RBC 0-2 (0-2) Urine WBC 0-2 (0-5) Ur Squamous Epith Cells None (None-Few) Urine Bacteria None (None) Imaging Data US - abdomen: Attestation: I have reviewed the pertinent imaging results. Radiologist's impression: Transvaginal pelvic ultrasound utilizing grayscale, color flow and duplex Doppler techniques Comparison: Pelvic ultrasound December 22, 2023 Findings: Uterus: Measures 6 by 5 x 4 centimeters. Mildly heterogeneous echogenicity likely senescent changes. No cysts or masses. Endometrium: 2 millimeters in thickness. No endometrial fluid. Right ovary: Not visualized secondary to small size, atypical location or technique. No right adnexal cysts or masses. Left ovary: 5.7 x 5.9 x 5.6 centimeters in size. Minimally complex cyst with some layering echogenicities posteriorly measures 5.7 x 3.9 x 4.9 centimeters. There is appropriate color flow and duplex Doppler waveforms to the left ovary. Free fluid: None. Impression: Minimally complex LEFT ovarian cyst measuring up to 5.7 centimeters. Recommend follow-up pelvic ultrasound in 3 months to evaluate for resolution or interval increased growth. Discharge Plan Discharge Clinical Impression: Abdominal pain Patient Disposition: Admitted As Observation Condition: Stable Prescriptions: No Action multivitamin Tablet 1 tab PO QDAY buspirone 10 mg tablet 10 mg PO BID quetiapine 25 mg tablet 12.5 mg PO QDAY venlafaxine 75 mg capsule,extended release 24hr 150 mg PO DAILY calcium carbonate [Calcium 600] 600 mg calcium (1,500 mg) tablet 600 mg PO QDAY hydrocortisone [Anusol-HC] 2.5 % cream with perineal applicator 1 applic GA BID PRN (Reason: itching) Qty: 30 3RF montelukast 10 mg tablet 10 mg PO .Bedtime Qty: 90 2RF Follow Up/Referrals: Huma Johnson MD [Primary Care Provider] -
[2024-02-22 14:44] LABS: Appearance Urine Clear (Clear); Bilirubin Urine Negative (Negative); Blood Urine Negative (Negative); Color Urine Yellow (Yellow); Glucose Urine Negative (Negative); Ketones Urine Negative (Negative); Leukocyte Esterase Urine Negative (Negative); Nitrite Urine Negative (Negative); Protein Urine Negative (Negative); Specific Gravity Urine >= 1.030 (1.000-1.030); Urobilinogen Urine 0.2 (0.2-1.0)
[2024-02-22 14:55] LABS: RBC Urine 0-2 (0-2); WBC Urine 0-2 (0-5)
--- NOTE | 2024-02-22 15:01 | CRLHL7_ITS ---
For Patients: As a result of the Century Cures Act, medical imaging exams and procedure reports are released immediately into your electronic medical record. You may view this report before your referring provider. If you have questions, please contact your health care provider. INDICATION: Right lower quadrant pain. TECHNIQUE: CT abdomen and pelvis acquired with 69 cc Isovue 370 IV contrast. COMPARISON: None. FINDINGS: Lower chest: Unremarkable. Liver: Unremarkable. Normal in size and attenuation. No suspicious masses. Gallbladder and bile ducts: Unremarkable. No stones or inflammation. No biliary dilatation. Pancreas: Unremarkable. No mass or inflammation. Spleen: Unremarkable. Normal in size. No masses. Adrenal glands: Unremarkable. No nodules. Kidneys: Unremarkable. No suspicious masses, stones, or hydronephrosis. GI tract: Above average colonic stool volume. Gaseous distention of the large bowel loops. There is twisting of the bowel loops and mesentery in the left lower quadrant (2/80), with collapse of some of the large bowel loops coming in and out of this region may be related to developing volvulus or internal herniation.. Appendix is not visualized. Vasculature: Abdominal aorta is normal in caliber. Mesenteric arteries are patent. Lymph nodes: No lymphadenopathy. Peritoneum/Abdominal Wall: Unremarkable. No sign of mass or infiltration. No free air or significant free fluid. Pelvis: Left adnexal cyst measuring 4.6 centimeters in diameter. Possible thickening of the endometrium. Bladder is unremarkable Bones: Unremarkable for age. IMPRESSION: 1. Above average colonic stool volume. 2. Twisting of the bowel loops and mesentery in the left lower quadrant may be related to developing volvulus or internal herniation. 3. Left adnexal cyst measuring up to 4.6 centimeters in diameter. In addition possible thickening of the endometrium. Consider outpatient nonemergent pelvic ultrasound for further evaluation. Please note that all CT scans at this facility use dose modulation, iterative reconstruction, and/or weight-based dosing when appropriate to reduce radiation dose to as low as reasonably achievable. Dictated by Ernestine Croft MD @ 02/22/2024 5:19:54 PM (Electronically Signed)
[2024-02-22] MEDS: KETOROLAC 30 MG/ML inj IVP (15:45)
--- NOTE | 2024-02-22 18:54 | PC.NURSE ---
Pt arrived to floor at 1805 from ED. Pt has RLQ pain; complaint of pain at 7 awaiting orders. Pt alert and oriented. Pt independent in room.
[2024-02-22] MEDS: LACTATED RINGERS 500 ML 500 ML IV (19:01)
--- NOTE | 2024-02-22 19:13 | P.IMHP_ITS ---
Hospitalist- H&P: HPI History of Present Illness Date Seen: 02/22/24 Chief complaint: R abdomen pain Narrative: Liseth Morgan is a 53 year old female admitted with right lower quadrant pain that started this morning. Patient reports the pain is fairly severe. Pain increased with activity. She has not been eating much today but has been able to keep down fluids. She has not had any vomiting. No fever. Last week she was scheduled to undergo colonoscopy at [facility] . She did act colon prep but the colonoscopy was canceled because she had not adequately cleaned out her colon. She does have a problem with chronic constipation for which she takes MiraLax once a day. Since her colonoscopy prep last week she has not had a bowel movement. Previous abdominal surgery includes abdominal hernia repair with mesh and a C- section. No previous small-bowel obstruction. Review of Systems Narrative: Prior to events this morning she reports she was generally doing well. She has not previously abdominal pain like this. No nausea vomiting. Constipation as above. No urinary problems. [facility] Medical History (Updated 02/22/24 @ 19:26 by Abel Crump MD) Adenomatous colon polyp ?D12.6 - Benign neoplasm of colon, unspecified (ICD-10) Ovarian cyst (07/13/23) ?N83.209 - Unspecified ovarian cyst, unspecified side (ICD-10) Elevated blood sugar ?R73.9 - Hyperglycemia, unspecified (ICD-10) Swelling of lower extremity ?M79.89 - Other specified soft tissue disorders (ICD-10) Migraine headache ?G43.909 - Migraine, unspecified, not intractable, without status migrainosus (ICD-10) Insomnia ?G47.00 - Insomnia, unspecified (ICD-10) History of iron deficiency anemia ?Z86.2 - Personal history of diseases of the blood and blood-forming organs and certain disorders involving the immune mechanism (ICD-10) Elevated blood pressure reading without diagnosis of hypertension (2019) ?R03.0 - Elevated blood-pressure reading, without diagnosis of hypertension (ICD-10) Depression (03/06/13) ?F32.A - Depression, unspecified (ICD-10) Chronic pain (07/2020) ?G89.29 - Other chronic pain (ICD-10) Chronic constipation ?K59.09 - Other constipation (ICD-10) Basal cell carcinoma (BCC) (2001) ?C44.91 - Basal cell carcinoma of skin, unspecified (ICD-10) Anxiety disorder ?F41.9 - Anxiety disorder, unspecified (ICD-10) Surgical History History of tonsillectomy (1972) ?Z90.89 - Acquired absence of other organs (ICD-10) History of left knee replacement (2015) ?Z96.652 - Presence of left artificial knee joint (ICD-10) History of section (2001) ?Z98.891 - History of uterine scar from previous surgery (ICD-10) Basal cell carcinoma of face (2002) ?C44.310 - Basal cell carcinoma of skin of unspecified parts of face (ICD-10) Family History Mother Alzheimers disease Type 2 diabetes mellitus Maternal Grandmother Type 1 diabetes mellitus Family/Other Fibromyalgia Mental disorder Father Myocardial infarction, Onset Age: 70 Brother Osteoarthritis Other Uterine cancer Social History (Updated 02/22/24 @ 19:22 by Abel Crump MD) Narrative: Recently moved from [place] to [place]. She lives alone. She has a 22-year-old son with disabilities. He is with her in the summer. , [employer], 2 kids, older CP, ADHD exercises 3-4 times per week- stationary bike, yoga non-smoker does not drink alcohol. Previous history of alcohol abuse. Sober for 2 years What is your current living situation?: I presently have a place to live Problems where you live: no known problems Problems where you live details: NA In the past 12 months, utilities in danger of being shut off: no In past 12 months, lack of transportation kept you from medical appts, meetings, work, or getting things needed for daily living: no In the past 12 mos, have been you worried that your food would run out before you had money to buy more?: never true In the past 12 mos, the food you bought just didn't last and you didn't have money to buy more?: never true Highest level of school completed/degree received: Bachelor's degree Smoking Status: Never smoker Do you use any of these nicotine containing products: None Second hand tobacco smoke exposure: No How often do you have a drink containing alcohol: never How often do you have six or more drinks on one occasion: Never AUDIT-C Alcohol total score: 0 Non-prescribed substance use: denies use Caffeine: Yes How often does anyone, including family, friends and others, physically hurt you : never How often does anyone, including family, friends and others, insult or talk down to you: never How often does anyone, including family, friends and others, threaten you with harm: never How often does anyone, including family, friends and others, scream or curse at you: never Little interest or pleasure in doing things: not at all Feeling down, depressed, or hopeless: several days service: No Meds Home Medications and Allergies Home Medications ?Medication ?Instructions ?Recorded ?Confirmed ?Type buspirone 10 mg tablet 10 mg PO BID 03/25/22 02/22/24 History multivitamin 1 tab PO QDAY 03/25/22 01/31/24 History quetiapine 25 mg tablet 12.5 mg PO QDAY 03/25/22 02/22/24 History venlafaxine 75 mg capsule,extended 150 mg PO DAILY 08/11/23 02/22/24 History release 24 hr calcium carbonate (Calcium 600) 600 mg PO QDAY 09/11/23 01/31/24 History Allergies Allergy/AdvReac Type Severity Reaction Status Date / Time morphine Allergy Intermediate internal Verified 02/22/24 15:24 itch Exam Narrative: Exam Narrative: She is alert and appears in no distress. She gives her own history. Oropharynx is normal. Neck is supple without mass or adenopathy. Respirations are clear to auscultation. Cardiovascular: S1, S2, regular rate and rhythm. No murmur gallop or rub. Abdomen: Bowel sounds are active. Abdomen is soft without t enderness or mass. She indicates the location of her pain earlier today was in the right lower quadrant. Palpation there is entirely nontender without mass. External genitalia normal. Extremities normal. Good peripheral perfusion. No rash. Const: Vital Signs, click to edit/add: Vital Signs - 24 hr 02/22/24 13:43 02/22/24 15:55 02/22/24 17:10 Temperature 98.3 F Pulse Rate [Pulse Oximeter] 94 81 83 Respiratory Rate 16 20 18 Blood Pressure [Ri ght Arm] Blood Pressure [Ri ght Upper Arm] 147/106 H 159/100 H 164/90 H Pulse Oximetry 98 98 98 Oxygen Delivery Me thod Room Air Room Air Room Air 02/22/24 18:05 02/22/24 18:39 Temperature 98.3 F 7 F L Pulse Rate [Pulse Oximeter] 86 Respiratory Rate 18 Blood Pressure [Ri ght Arm] 186/118 H Blood Pressure [Ri ght Upper Arm] Pulse Oximetry 97 Oxygen Delivery Me thod Room Air Documenting provider has reviewed patient's vital signs: yes Hospitalist - H&P: Result Labs Labs: Short CBC 02/22/24 Range/Units 14:00 WBC 6.00 (4.50-11.00) K/uL Hgb 13.0 (12.0-16.0) gm/dL Hct 39.7 (33.0-51.0) % Plt Count 234 (140-440) K/uL BMP 02/22/24 14:00 Sodium 137 Potassium 3.8 Chloride 102 Carbon Dioxide 26 BUN 14 Creatinine 0.6 Glucose 151 H Calcium 9.0 Urine 02/22/24 Range/Units 14:22 Urine Color Yellow (Yellow) Urine Appearance Clear (Clear) Urine pH 7.0 (5.0-8.5) Ur Specific [place] >= 1.030 (1.000-1.030) Urine Protein Negative (Negative) Urine Glucose (UA) Negative (Negative) Imaging CT scan - abdomen: Radiologist's impression: INDICATION: Right lower quadrant pain. TECHNIQUE: CT abdomen and pelvis acquired with 69 cc Isovue 370 IV contrast. COMPARISON: None. FINDINGS: Lower chest: Unremarkable. Liver: Unremarkable. Normal in size and attenuation. No suspicious masses. Gallbladder and bile ducts: Unremarkable. No stones or inflammation. No biliary dilatation. Pancreas: Unremarkable. No mass or inflammation. Spleen: Unremarkable. Normal in size. No masses. Adrenal glands: Unremarkable. No nodules. Kidneys: Unremarkable. No suspicious masses, stones, or hydronephrosis. GI tract: Above average colonic stool volume. Gaseous distention of the large bowel loops. There is twisting of the bowel loops and mesentery in the left lower quadrant (2/80), with collapse of some of the large bowel loops coming in and out of this region may be related to developing volvulus or internal herniation.. Appendix is not visualized. Vasculature: Abdominal aorta is normal in caliber. Mesenteric arteries are patent. Lymph nodes: No lymphadenopathy. Peritoneum/Abdominal Wall: Unremarkable. No sign of mass or infiltration. No free air or significant free fluid. Pelvis: Left adnexal cyst measuring 4.6 centimeters in diameter. Possible thickening of the endometrium. Bladder is unremarkable Bones: Unremarkable for age. IMPRESSION: 1. Above average colonic stool volume. 2. Twisting of the bowel loops and mesentery in the left lower quadrant may be related to developing volvulus or internal herniation. 3. Left adnexal cyst measuring up to 4.6 centimeters in diameter. In addition possible thickening of the endometrium. Consider outpatient nonemergent pelvic ultrasound for further evaluation. Assessment and Plan Assessment and plan (1) Abdominal pain: Problem comment: Pain is largely resolved now. Exam is now benign. Discussed with surgery. Monitor overnight. If acutely worse discuss with surgery. If doing well tomorrow advance diet and possible discharge. Needs more aggressive management of chronic constipation. Status: Acute (2) Chronic constipation: Problem comment: Needs more aggressive management. Status: Acute Plan Observed overnight and hospital. Contact General surgery if acutely getting worse. May need exploratory laparoscopy/laparotomy. If doing well as she is now. Would advance diet tomorrow and possibly discharge. Needs more aggressive laxative therapy. Total Time Spent Total Time Spent: Total time spent today is 60 minutes in evaluation management and discussion with patient and other providers ongoing evaluation management
[2024-02-22] MEDS: LACTATED RINGERS 1000 ML 1,000 ML 100 ML IV (20:08)
[2024-02-22] MEDS: DOCUSATE SODIUM/BENZOCAINE 5 ML ENEMA PR (20:27)
[2024-02-22] MEDS: QUETIAPINE 25 MG TABLET 12.5 MG PO (20:28)
[2024-02-22] MEDS: BUSPIRONE 10 MG TABLET PO (20:29)
[2024-02-22] MEDS: MONTELUKAST 10 MG TABLET PO (20:29)
[2024-02-23 02:09] VITALS: BP 117/66; PULSE 74; RESP 18; TEMP 36.8; O2SAT 96
--- NOTE | 2024-02-23 05:33 | PC.NURSE ---
Shift note: Pain level appeared stable at 3. Docusate enema given at 2100 per order. Pt had small watery BM tonight. Bp was very high at the beginning of the shift, but monitored again had systolic Bp recorded as 132 and 114 for 2300 and 0300 respectively. Pt ambulated independently in room. Pt had adequate sleep.
[2024-02-23] MEDS: LACTATED RINGERS 1000 ML 1,000 ML 100 ML IV (06:06)
[2024-02-23 08:04] VITALS: BP 127/88; PULSE 81; RESP 18; TEMP 36.7; O2SAT 97
--- NOTE | 2024-02-23 09:20 | P.GSCN_ITS ---
History of Present Illness Consult details Date Seen: 02/23/24 Consult date: 02/23/24 Narrative: The patient is a 53-year-old female with right lower quadrant abdominal pain. She states that the pain began in the morning and became more severe over the day. With this pain she did have nausea but no vomiting. Because of the severe pain she came to the emergency department to be evaluated. She has not had pain like this before. Workup revealed a large amount of stool in her colon. She had question of a mesenteric swirl in the left lower quadrant which may represent developing volvulus, however the patient had no nausea or vomiting. Labs were within normal limits. She was admitted to the hospital. She states that later in the afternoon her pain went away. She was given an enema. She had a small bowel movement. She has been passing gas but has not had a bowel movement since. She underwent colonoscopy April of 2022. Multiple large polyps were found. It was recommended that she undergo repeat colonoscopy in 1 year. She underwent repeat in 2022 which was normal. She was to have a repeat colonoscopy last week, however her prep was inadequate. She has chronic constipation and takes MiraLax daily. She has not had a bowel movement since her colonoscopy prep last week. [facility] Medical History (Updated 02/22/24 @ 19:26 by Abel Crump MD) Adenomatous colon polyp ?D12.6 - Benign neoplasm of colon, unspecified (ICD-10) Ovarian cyst (07/13/23) ?N83.209 - Unspecified ovarian cyst, unspecified side (ICD-10) Elevated blood sugar ?R73.9 - Hyperglycemia, unspecified (ICD-10) Swelling of lower extremity ?M79.89 - Other specified soft tissue disorders (ICD-10) Migraine headache ?G43.909 - Migraine, unspecified, not intractable, without status migrainosus (ICD-10) Insomnia ?G47.00 - Insomnia, unspecified (ICD-10) History of iron deficiency anemia ?Z86.2 - Personal history of diseases of the blood and blood-forming organs and certain disorders involving the immune mechanism (ICD-10) Elevated blood pressure reading without diagnosis of hypertension (2019) ?R03.0 - Elevated blood-pressure reading, without diagnosis of hypertension (ICD-10) Depression (03/06/13) ?F32.A - Depression, unspecified (ICD-10) Chronic pain (07/2020) ?G89.29 - Other chronic pain (ICD-10) Chronic constipation ?K59.09 - Other constipation (ICD-10) Basal cell carcinoma (BCC) (2001) ?C44.91 - Basal cell carcinoma of skin, unspecified (ICD-10) Anxiety disorder ?F41.9 - Anxiety disorder, unspecified (ICD-10) Surgical History History of tonsillectomy (1972) ?Z90.89 - Acquired absence of other organs (ICD-10) History of left knee replacement (2015) ?Z96.652 - Presence of left artificial knee joint (ICD-10) History of section (2001) ?Z98.891 - History of uterine scar from previous surgery (ICD-10) Basal cell carcinoma of face (2002) ?C44.310 - Basal cell carcinoma of skin of unspecified parts of face (ICD-10) Family History Mother Alzheimers disease Type 2 diabetes mellitus Maternal Grandmother Type 1 diabetes mellitus Family/Other Fibromyalgia Mental disorder Father Myocardial infarction, Onset Age: 70 Brother Osteoarthritis Other Uterine cancer Social History (Updated 02/22/24 @ 19:22 by Abel Crump MD) Narrative: Recently moved from [place] to [place]. She lives alone. She has a 22-year-old son with disabilities. He is with her in the summer. , [employer], 2 kids, older CP, ADHD exercises 3-4 times per week- stationary bike, yoga non-smoker does not drink alcohol. Previous history of alcohol abuse. Sober for 2 years What is your current living situation?: I presently have a place to live Problems where you live: no known problems Problems where you live details: NA In the past 12 months, utilities in danger of being shut off: no In past 12 months, lack of transportation kept you from medical appts, meetings, work, or getting things needed for daily living: no In the past 12 mos, have been you worried that your food would run out before you had money to buy more?: never true In the past 12 mos, the food you bought just didn't last and you didn't have money to buy more?: never true Highest level of school completed/degree received: Bachelor's degree Smoking Status: Never smoker Do you use any of these nicotine containing products: None Second hand tobacco smoke exposure: No How often do you have a drink containing alcohol: never How often do you have six or more drinks on one occasion: Never AUDIT-C Alcohol total score: 0 Non-prescribed substance use: denies use Caffeine: Yes How often does anyone, including family, friends and others, physically hurt you : never How often does anyone, including family, friends and others, insult or talk down to you: never How often does anyone, including family, friends and others, threaten you with harm: never How often does anyone, including family, friends and others, scream or curse at you: never Little interest or pleasure in doing things: not at all Feeling down, depressed, or hopeless: several days service: No Meds Home Medications and Allergies Home Medications ?Medication ?Instructions ?Recorded ?Confirmed ?Type buspirone 10 mg tablet 10 mg PO BID 03/25/22 02/22/24 History multivitamin 1 tab PO DAILY 03/25/22 02/23/24 History quetiapine 25 mg tablet 12.5 mg PO DAILY 03/25/22 02/23/24 History venlafaxine 75 mg capsule,extended 150 mg PO DAILY 08/11/23 02/22/24 History release 24 hr calcium carbonate (Calcium 600) 600 mg PO DAILY 09/11/23 02/23/24 History montelukast 10 mg tablet 10 mg PO HS 02/23/24 02/23/24 History Allergies Allergy/AdvReac Type Severity Reaction Status Date / Time morphine Allergy Intermediate internal Verified 02/22/24 15:24 itch Exam Narrative: Exam Narrative: General: No acute distress Respiratory: Breathing nonlabored on room air CV: Regular rate Abdomen: Soft, nontender, nondistended. Const: Vital Signs, click to edit/add: Vital Signs - 24 hr 02/22/24 13:43 02/22/24 15:55 02/22/24 17:10 Temperature 98.3 F Pulse Rate [Pulse Oximeter] 94 81 83 Respiratory Rate 16 20 18 Blood Pressure [Le ft Arm] Blood Pressure [Ri ght Arm] Blood Pressure [Ri ght Upper Arm] 147/106 H 159/100 H 164/90 H Pulse Oximetry 98 98 98 Oxygen Delivery Me thod Room Air Room Air Room Air 02/22/24 18:05 02/22/24 18:39 02/22/24 19:00 Temperature 98.3 F 7 F L 98.2 F Pulse Rate [Pulse Oximeter] 86 72 Respiratory Rate 18 18 Blood Pressure [Le ft Arm] Blood Pressure [Ri ght Arm] 186/118 H 172/104 H Blood Pressure [Ri ght Upper Arm] Pulse Oximetry 97 98 Oxygen Delivery Al thod Room Air Room Air 02/22/24 22:31 02/22/24 22:31 02/23/24 02:09 Temperature 98.2 F 98.2 F Pulse Rate [Pulse Oximeter] 85 85 74 Respiratory Rate 18 18 18 Blood Pressure [Le ft Arm] 132/71 117/66 Blood Pressure [Ri ght Arm] Blood Pressure [Ri ght Upper Arm] Pulse Oximetry 94 96 Oxygen Delivery Al thod Room Air Room Air 02/23/24 08:04 02/23/24 08:04 Temperature 98.1 F Pulse Rate [Pulse Oximeter] 81 81 Respiratory Rate 18 18 Blood Pressure [Le ft Arm] Blood Pressure [Ri ght Arm] 127/88 Blood Pressure [Ri ght Upper Arm] Pulse Oximetry 97 Oxygen Delivery Al thod Room Air Results Labs Labs: Abnormal lab results 02/22/24 Range/Units 14:00 Neut % (Auto) 74.6 H (42.0-72.0) % Lymph % (Auto) 18.2 L (20-44) % Glucose 151 H (60-115) mg/dL C-Reactive Protein < 0.5 L (0.5-1.0) mg/dL Diabetes panel 02/22/24 Range/Units 14:00 Sodium 137 (135-149) mmol/L Potassium 3.8 (3.6-5.1) mmol/L Chloride 102 (96-114) mmol/L Carbon Dioxide 26 (20-32) mmol/L BUN 14 (7-30) mg/dL Creatinine 0.6 (0.5-1.5) mg/dL Glucose 151 H (60-115) mg/dL Calcium 9.0 (8.4-10.6) mg/dL Calcium panel 02/22/24 Range/Units 14:00 Calcium 9.0 (8.4-10.6) mg/dL Pituitary panel 02/22/24 Range/Units 14:00 Sodium 137 (135-149) mmol/L Potassium 3.8 (3.6-5.1) mmol/L Chloride 102 (96-114) mmol/L Carbon Dioxide 26 (20-32) mmol/L BUN 14 (7-30) mg/dL Creatinine 0.6 (0.5-1.5) mg/dL Glucose 151 H (60-115) mg/dL Calcium 9.0 (8.4-10.6) mg/dL Adrenal panel 02/22/24 Range/Units 14:00 Sodium 137 (135-149) mmol/L Potassium 3.8 (3.6-5.1) mmol/L Chloride 102 (96-114) mmol/L Carbon Dioxide 26 (20-32) mmol/L BUN 14 (7-30) mg/dL Creatinine 0.6 (0.5-1.5) mg/dL Glucose 151 H (60-115) mg/dL Calcium 9.0 (8.4-10.6) mg/dL All other labs normal. Imaging Abdomen CT scan report/results: report reviewed and image reviewed Additional studies: IMPRESSION: 1. Above average colonic stool volume. 2. Twisting of the bowel loops and mesentery in the left lower quadrant may be related to developing volvulus or internal herniation. 3. Left adnexal cyst measuring up to 4.6 centimeters in diameter. In addition possible thickening of the endometrium. Consider outpatient nonemergent pelvic ultrasound for further evaluation. Dictated by Ernestine Croft MD @ 02/22/2024 5:19:54 PM Progress Note:A&P Assessment and plan (1) Abdominal pain: Status: Acute (2) Adnexal mass: Status: Acute (3) Chronic constipation: Status: Acute Plan The patient is a 53-year-old female with a history of chronic constipation who presented to the emergency department with new right lower quadrant pain. This has now resolved. There was some concern for possible volvulus on imaging. Labs have been normal. -recommend advancement of diet as tolerated. -patient is amenable to additional enemas, suppositories or trying magnesium citrate to see this will facilitate a bowel movement. However, given how soft her abdomen is, if she does not have results but is tolerating a diet it would be okay to discharge her. -patient is to return for colonoscopy with repeat prep in the future. I discussed with her seeing GI regarding her colon transit issues going forward since she does have chronic issues with constipation.
[2024-02-23] MEDS: VENLAFAXINE ER 75 MG CAPSULE 150 MG PO (09:38)
[2024-02-23] MEDS: MULTIVITAMIN/MINERALS 1 TABLET 1 TAB PO (09:38)
[2024-02-23] MEDS: BUSPIRONE 10 MG TABLET PO (09:38)
[2024-02-23] MEDS: CALCIUM CARBONATE 500 MG TABLET PO (09:38)
[2024-02-23] MEDS: MAGNESIUM CITRATE 300 ML SOLUTION PO (10:12)
[2024-02-23] MEDS: ACETAMINOPHEN 325 MG TABLET 650 MG PO (10:15)
[2024-02-23 11:00] VITALS: BP 160/96; PULSE 80; RESP 18; O2SAT 96
--- NOTE | 2024-02-23 12:04 | P.DS_ITS ---
DS: Providers Provider Date Seen: 02/23/24 Date of admission: 02/22/24 17:58 Primary care physician: Huma Johnson MD Admitting Clinician: Abel Crump MD Consults: General Surgery Attending Physician on discharge: Taryn Lackey MD Date of Discharge: 02/23/24 DS: Diagnosis Discharge Diagnosis (1) Abdominal pain: Status: Acute Problem details: - resolved upon admission, monitored overnight - remained pain free on hospital day 1; diet advanced without difficulty - seen by General Surgery, no operative needs identified (2) Adnexal mass: Status: Acute Problem details: - Benign appearing left adnexal cyst evaluated by OBGYN - noted on imaging again 02/22/24, recommend 3 month f/u imaging (3) Chronic constipation: Status: Chronic Problem details: - continue daily Miralax upon discharge, continue adding in OTC Magnesium DS: Summary Hospital Course Hospital Course: Liseth is a 53 yo female who presented to the hospital on 02/21 with RLQ abdominal pain. She has a history of chronic constipation; was scheduled for an outpatient colonoscopy last week but this was cancelled given poor prep and patient hadn't had a BM since then. ER imaging concerning for possible developing volvulus; she was admitted for ob servation and kept NPO overnight. Upon arrival to the medical floor, her pain had completely resolved and she remained pain free during stay. On hospital day 1, she was able to tolerate po intake and felt back to baseline. She is discharged home on bowel regimen with routine PCP f/u. Status at Discharge Functional status at discharge: independent ambulation Overall status at discharge: patient is progressing back to baseline Time Spent with Patient Time attestation: Total time spent providing and/or coordinating discharge services: Time spent: Greater than 30 minutes Exam Narrative: Exam Narrative: GEN: Alert and oriented, sitting comfortably in bed HEENT: Normal external ears, EOMIs bilaterally, no scleral icterus CV: RRR, No concerning murmurs R: LCTA bilaterally without concerning wheezing Ab: Soft, nontender, no masses Ext: wwp, no concerning edema Skin: No concerning skin lesions or rashes on exposed skin Neuro: Nonfocal Psych: Appropriate Const: Vital Signs, click to edit/add: Vital Signs - 24 hr 02/22/24 13:43 02/22/24 15:55 02/22/24 17:10 Temperature 98.3 F Pulse Rate [Pulse Oximeter] 94 81 83 Respiratory Rate 16 20 18 Blood Pressure [Le ft Arm] Blood Pressure [Ri ght Arm] Blood Pressure [Ri ght Upper Arm] 147/106 H 159/100 H 164/90 H Pulse Oximetry 98 98 98 Oxygen Delivery Me thod Room Air Room Air Room Air 02/22/24 18:05 02/22/24 18:39 02/22/24 19:00 Temperature 98.3 F 7 F L 98.2 F Pulse Rate [Pulse Oximeter] 86 72 Respiratory Rate 18 18 Blood Pressure [Le ft Arm] Blood Pressure [Ri ght Arm] 186/118 H 172/104 H Blood Pressure [Ri ght Upper Arm] Pulse Oximetry 97 98 Oxygen Delivery Ms thod Room Air Room Air 02/22/24 22:31 02/22/24 22:31 02/23/24 02:09 Temperature 98.2 F 98.2 F Pulse Rate [Pulse Oximeter] 85 85 74 Respiratory Rate 18 18 18 Blood Pressure [Le ft Arm] 132/71 117/66 Blood Pressure [Ri ght Arm] Blood Pressure [Ri ght Upper Arm] Pulse Oximetry 94 96 Oxygen Delivery Me thod Room Air Room Air 02/23/24 08:04 02/23/24 08:04 Temperature 98.1 F Pulse Rate [Pulse Oximeter] 81 81 Respiratory Rate 18 18 Blood Pressure [Le ft Arm] Blood Pressure [Ri ght Arm] 127/88 Blood Pressure [Ri ght Upper Arm] Pulse Oximetry 97 Oxygen Delivery Me thod Room Air DS: Data Data Completed and Pending Labs on day of discharge: Labs from last 24 hours 02/22/24 02/22/24 14:22 14:00 WBC 6.00 RBC 4.28 Hgb 13.0 Hct 39.7 MCV 93 MCH 30 MCHC 33 RDW Coeff of Sindi 13.8 Plt Count 234 Neut % (Auto) 74.6 H Lymph % (Auto) 18.2 L [place] % (Auto) 5.2 Eos % (Auto) 0.8 Baso % (Auto) 0.5 Neut # (Auto) 4.50 Lymph # (Auto) 1.10 [place] # (Auto) 0.30 Eos # (Auto) 0.05 Baso # (Auto) 0.03 Abs Immat Gran (auto) 0.04 Imm/Tot Granulo (auto) 0.7 Sodium 137 Potassium 3.8 Chloride 102 Carbon Dioxide 26 Anion Gap 9 BUN 14 Creatinine 0.6 Estimated Creat Clear 103.02 Estimated GFR 106 Glucose 151 H Calcium 9.0 C-Reactive Protein < 0.5 L Urine Color Yellow Urine Appearance Clear Urine pH 7.0 Ur Specific [place] >= 1.030 Urine Protein Negative Urine Glucose (UA) Negative Urine Ketones Negative Urine Blood Negative Urine Nitrite Negative Urine Bilirubin Negative Urine Urobilinogen 0.2 Ur Leukocyte Esterase Negative Urine RBC 0-2 Urine WBC 0-2 Ur Squamous Epith Cells None Urine Bacteria None Preliminary micro results at discharge 02/22/24 14:27 Urine Culture - Preliminary Urine,Clean Catch Culture in Progress Discharge Plan Discharge Disposition: Home, Self-Care Date of Admission: 02/22/24 17:58 Attending Provider on Discharge: Taryn Lackey Consulting Providers: Yudelka Estrada Primary Care Provider: Huma Johnson Condition: Stable Anticipated Discharge Date/Time: 02/23/24 12:00 Discharge Medications: Continued multivitamin Tablet 1 tab PO DAILY buspirone 10 mg tablet 10 mg PO BID quetiapine 25 mg tablet 12.5 mg PO DAILY venlafaxine 75 mg capsule,extended release 24hr 150 mg PO DAILY calcium carbonate [Calcium 600] 600 mg calcium (1,500 mg) tablet 600 mg PO DAILY montelukast 10 mg tablet 10 mg PO HS hydrocortisone [Anusol-HC] 2.5 % cream with perineal applicator 1 applic FL BID PRN (Reason: itching) Qty: 30 3RF Discharge Orders: Discharge Order (Routine); Ordered 02/23/24 Ordered By: Taryn Lackey Additional Instructions: Continue daily Miralax, consider adding in OTC Magnesium 1-2 times/day as well. Repeat ultrasound for ovarian cyst f/u in 3 months. Activity Level: No Restrictions Discharge Diet: Regular Follow Up Appointments: Huma Johnson MD [Primary Care Provider] - Forms: [facility] Info Instructions
--- NOTE | 2024-02-23 14:34 | PC.NURSE ---
Nursing Care Hours: [id number] Pt this shift calm and cooperative, alert and oriented, independent in room. C/o headache, treated with coffee and Tylenol. IV patent, DC and removed at discharge. VSS. Last Bp was hypertensive, pt states she has white coat syndrome. Drank magnesium citrate and ambulated the becker. Advanced diet to regular without issue. No BM, bowel sounds active x4. Discharge instructions went over with pt. Discussed signs and symptoms that would require further evaluation or ED visit. Encouraged pt to ambulate and increase fluid intake at home. Ambulated off the unit in stable condition.
== END 2024-02-23 13:55 | disposition home or self-care (01) ==
LOC: ED 17:43 → MEDSURG 17:59
PROVIDERS: Admitting Provider Family Medicine; Emergency Provider Family Medicine; PCP Family Medicine; Visit Provider Family Medicine
DX: I10 Essential (primary) hypertension (principal)
CPT/HCPCS: 36415; 74177; 76830; 80048; 81001; 85025; 86140; 87086; 93976; 99284; 99285; A9153; A9270; G0378; J1885; J7120; Q9967

== ENCOUNTER 2024-06-20 15:48 | Outpatient (CLI) | payer OTHER, SELFPAY ==
--- OUTSIDE RECORDS SUMMARY | 2024-06-20 15:54 | XMS_ITS | Clinical Summary ---
[facility] Address [address] [place] [address] Care Team Providers Care Gambling Broker Name Role Phone Amanda Santiago MD Primary Care Provider [phone] Source Comments You are receiving this document as you are listed as the primary care provider,follow-up provider, or the patient has been referred to you for consultation.This is in compliance with the Medicare and[facility] Hospital[facility] EHR Incentive Program,which states Providers who transition their patient to another setting of careor provider of care or refers their patient to another provider of care shouldprovide summary care record for each transition of care or referral. [employer] Allergies No known active allergies Medications Medication [...] APPOINTMENT MADE DR SAXENA NO LONGER AT [facility] 1 09/22/2009 Active Multiple Vitamins-Minerals (MULTIVITAMIN OR) [...] 1987 Cholesterol 2013 COVID-19 Vaccine ( season) 2024 05/29/2021, 11/05/2020, 10/15/2020 Influenza (#1) 2024 05/25/2021, 11/11/2019, 05/08/2020, Additional history exists DTaP/Tdap/Td (4 - Tdap) 08/28/2029 08/28/19, 08/05/2015, 11/20/2008 Zoster/Shingles Completed 06/08/2019, 03/16/2019 HepA Aged Out No longer eligi ble based on patient's age to complete this topic Hib Aged Out No longer eligi ble based on patient's age to complete this topic IPV (Polio) Aged Out No longer eligi ble based on patient's age to complete this topic RSV Aged Out No longer eligi ble based on patient's age to complete this topic MCV4 Aged Out No longer eligi ble based on patient's age to complete this topic Pneumococcal Aged Out No longer eligi ble based on patient's age to complete this topic Care Teams Gambling Broker Relationship Specialty Start Date End Date Amanda Santiago MD [address] [place] [id number] PCP - General 09/02/14
--- OUTSIDE RECORDS SUMMARY | 2024-06-20 15:54 | XMS_ITS | Clinical Summary ---
Author Organization [facility] Address [place], [place] [address] Care Team Providers Care Research Intern Name Role Phone Huma Johnson MD Primary Care Provider + Allergies Active Allergy Reactions Criticality Noted Date Comments Morphine Itching 02/13/2024 Internal itch Unlisted Allergen (Include Detail In Comments) Other - Describe In Comment Field 02/13/2024 Seasonal allergies Medications Medication Sig Dispensed Refills Start Date End Date Status busPIRone (BUSPAR) 10 mg tablet Take 10 mg by mouth two times daily. Active CALCIUM CARBONATE ORAL Take 600 mg by mouth once daily. Active hydrocortisone (ANUSOL-HC) 2.5 % rectal cream Apply topically to affected area(s) 2 times daily if needed for Hemorrhoid Pain/Itch. Active montelukast (SINGULAIR) 10 mg tablet Take 10 mg by mouth at bedtime. Active multivitamin (MULTIPLE VITAMIN ORAL) Take 1 Tablet by mouth once daily. Active quetiapine (SEROQUEL) 12.5 mg as half tablet Take 12.5 mg by mouth once daily. Active venlafaxine (EFFEXOR XR) 150 mg Extended-Release capsule Take 150 mg by mouth once daily. Active Active Problems No known active problems Encounters Date Type Department Care Team Description 05/17/2024 8:07 AM CDT Anesthesia Event [facility] [address] [place] [address] Jimmy Santiago MD [place], Kaelyn Bronson CRNA 05/17/2024 7:55 AM CDT - 05/17/2024 10:10 AM CDT Surgery [facility] [address] [place] [address] Wayne Car MBBS COLONOSCOPY WITH POLYPECTOMY 05/17/2024 6:59 AM CDT - 05/17/2024 10:20 AM CDT Hospital Encounter [facility] [address] [place] [address] Wayne Car MBBS Discharge Disposition: Home Self Care 05/16/2024 Travel from Last 3 Months Social History Tobacco Use Types Packs/Day Years Used Date Smoking Tobacco: Never Passive Smoke Exposure: Never Smokeless Tobacco: Never Tobacco Cessation:Counseling Given: Not Answered Alcohol Use Standard Drinks/Week Comments Never 0 (1 standard drink = 0.6 oz pur e alcohol) Sex and Gender Information Value Date Recorded Sex Assigned at Not on file Gender Identity Not on file Sexual Orientation Not on file Obstetrics History Last Filed Vital Signs Vital Sign Reading Time Taken Comments Blood Pressure 149/81 05/17/2024 9:55 AM CDT Pulse 73 05/17/2024 9:55 AM CDT Temperature 36.3 ??C (97.4 ??F) 05/17/2024 9:20 AM CD T Respiratory Rate 16 05/17/2024 9:55 AM CDT Oxygen Saturation 98% 05/17/2024 9:55 AM CDT Inhaled Oxygen Concentration - - Weight 70.4 kg (155 lb 2 oz) 05/16/2024 10:10 AM CDT Height 170.2 cm (5' 7) 02/13/2024 3:16 PM CDT Body Mass Index 24.3 02/13/2024 3:16 PM CDT Plan of Treatment Health Maintenance Due Date Last Done Comments Tdap 1979 Depression screening for age 12+ 1980 HIV for age 15-65 1983 BMI (ht and wt on same day) for age 18+ 1986 Hepatitis C screening for age 18-79 1986 Tetanus booster 1988 Lipids for age 45-75 2013 Mammogram for age 45-75 2013 Zoster (shingles) series for age 50+ (1 of 2) 2018 Pap test for age 21-65 08/11/2023 0, 08/11/2020, 07/03/2020, Additional history exists COVID-19 vaccine series (2023- season) 2024 06/03/2023, 05/05/2022, 12/02/2021, Additional history exists Influenza for age 50-64 04/14/2024 Colonoscopy through age 75 05/17/2034 05/17/2024 Pneumococcal series for age 6-64 Aged Out No longer eligible based on patient's age to complete this topic Procedures Procedure Name Priority Date/Time Associated Diagnosis Comments PATH TISSUE EXAM Today 05/17/2024 8:24 AM CDT COLONOSCOPY WITH POLYPECTOMY Elective 05/17/2024 7:57 AM CDT HX Colon Polyp COLONOSCOPY 05/17/2024 7:23 AM CDT ROOFER ASSISTANT THIN PREP PAP SCREEN IMAGED Routine 08/11/2020 9:00 AM RADIOLOGY AIDE from Last 3 Months or Most Recently Relevant to Health Maintenance Results * PATH TISSUE EXAM (05/17/2024 8:24 AM CDT) Case Report Pathology Report ?Case: [id number] ? Authorizing Provider: ??Wayne Cra, ?Collected: ? 05/17/2024 0824 ? MBBS ? Ordering Location: ? [facility] ?Received: ?05/17/2024 0927 ? Hospital ? Pathologist: ? Mounajjed, Taofic, MD ? Specimens: ?? A) - Descending Colon Polyp ? B) - Cecal Polyp ? C) - Transverse Colon Polyp ? D) - Descending Colon Polyp, larger descend ? 05/20/2024 1:06 PM CDT [facility] Final Diagnosis A) COLON, DESCENDING, POLYPECTOMIES: 1. Sessile serrated adenomas (3), see comment 2. Negative for overt dysplasia 3. Per the colonoscopy report: ?? a. Polyp sizes: 4-8 mm ?? b. Resection: Complete ?? c. Retrieval: Complete B) COLON, CECUM, BIOPSY: 1. Normal colonic mucosa (clinically, 1 polyp) 2. Negative for serrated change, dysplasia, and malignancy C) COLON, CECUM, POLYPECTOMY: 1. Sessile serrated adenoma, see comment 2. Negative for overt dysplasia 3. Per the colonoscopy report: ?? a. Polyp size: 18 mm ?? b. Resection: Complete ?? c. Retrieval: Complete D) COLON, DESCENDING, POLYPECTOMY: 1. Sessile serrated adenoma, see comment 2. Negative for overt dysplasia 3. Per the colonoscopy report: ?? a. Polyp size: 12 mm ?? b. Resection: Complete ?? c. Retrieval: Complete 05/20/2024 1:06 PM CDT [facility] Comment A-D. Given the number and size of sessile serrated adenomas present, this patient technically meets clinical criteria for serrated polyposis (see criteria below). Per the 2019 World Health Organization (WHO) Classification of Tumors of the Digestive System, clinical criteria for the diagnosis of serrated polyposis include: Criterion 1: At least five serrated lesions/polyps proximal to the rectum (all at least 5 mm in size) with at least two being greater or equal to 10 mm in size. Criterion 2: Greater than twenty serrated lesions/polyps of any size distributed throughout the large bowel with at least 5 being proximal to the rectum. 05/20/2024 1:06 PM CDT [facility] Clinical Information Surveillance colonoscopy; piecemeal removal of large sessile serrated adenoma last colonoscopy (less than 3 years) done at outside facility. 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 It is labeled with the patient's name and designated specimen 1: descending colon polyp. B) Received in formalin is a oates mucosal fragment measuring 3 mm in greatest dimension, which is entirely submitted in one cassette. It is labeled with the patient's name and designated specimen 2: cecal polyp. C) Received in formalin are 3 oates mucosal fragments ranging from 11 mm to 23 mm in greatest dimension, which are entirely submitted in one cassette. It is labeled with the patient's name and designated specimen 3: transverse colon polyp. D) Received in formalin are 7 oates mucosal fragments ranging from 3 mm to 15 mm in greatest dimension, which are entirely submitted in two cassettes. It is labeled with the patient's name and designated specimen 4: descending colon polyp. João Cifuentes 05/17/2024 3:18 PM 05/20/2024 1:06 PM CDT [facility] Microscopic Description The final diagnosis is based on microscopic examination of appropriate sections of all specimens. 05/20/2024 1:06 PM CDT [facility] Additional Information Interpreted at [facility], Central Laboratory - [address] [facility] [address], [place] [address] 05/20/2024 1:06 PM CDT [facility] Polyp (Descending Colon Polyp) 05/17/2024 8:24 AM CDT 05/17/2024 9:27 AM CDT Specimen from mass lesion (specimen) (Cecal Polyp) 05/17/2024 8:55 AM CDT 05/17/2024 9:27 AM CDT Specimen from mass lesion (specimen) (Transverse Colon Polyp) 05/17/2024 9:04 AM CDT 05/17/2024 9:27 AM CDT Specimen from mass lesion (specimen) (Descending Colon Polyp) 05/17/2024 9:05 AM CDT 05/17/2024 9:28 AM CDT Wayne AGUILAR PATHOLOGY/CYT OLOGY [facility] [address] [place] [address], [place] * COLONOSCOPY (05/17/2024 7:23 AM CDT) 05/17/2024 7:23 AM CDT Narrative Transcriptions Wayne Car MBBS - 05/17/2024 11:50 AM CDT [facility] Patient Name: Liseth Morgan Procedure Date: 05/17/2024 Gender: Female Date of : 1970 Admit Type: Ambulatory Procedure: Double Balloon Colonoscopy Proceduralist: Wayne Car - [facility] Referring MD: Wayne Car Indications/Pre-Op Diagnosis: Surveillance: Piecemeal removal of large sessile adenoma last colonoscopy (< 3 yrs)done Outside facility 05/2022, with failedstandard colonoscopy subsequently. Medications: Monitored Anesthesia Care Procedure Description: The patient had risks, benefits and alternatives explained to andgave informed consent. The patient had a stable cardiopulmonary status and judged an adequate candidate for sedation. The endoscope EN-450T5 [id number] was passed through the anus and advanced using standard double balloon technique to the cecum, identified by appendiceal orifice and ileocecal valve. Thecolonoscopy was technically difficult and complex due to a redundant colon. The patient tolerated the procedure well. The quality of the bowel preparation was good to fair. The procedure was determined to be ASGE Complexity Level 3. Intra-scope time: 56 minutes. Complications: No immediate complications. Estimated Blood Loss & Specimen: Estimated blood loss: none. Specimen collected: Yes and sent to Laboratory Findings: External hemorrhoids noted on perianal exam. The colon (entire examined portion) was grossly redundant. A 3 mm polyp was found in the cecum. The polyp was sessile. The polyp was removed with a cold biopsy forceps. Resection and retrieval were complete. An 18 mm polyp was found in the transverse colon. The polyp wassessile. The polyp was removed with a cold snare with EMS technique. Resection and retrieval were complete. For hemostasis, two hemostatic clipswere successfully placed (MR conditional). There was no bleeding at theend of the procedure. A 12 mm polyp was found in the descending colon. The polyp wassessile. The polyp was removed with a cold snare with EMS technique. Resection and retrieval were complete. For hemostasis, one hemostatic clip was successfully placed (MR conditional). There was no bleeding at theend of the procedure. Three sessile polyps were found in the descending colon. The polypswere 4 to 8 mm (6mm, 8 mm, 4 mm) in size. These polyps were removed with a cold snare. Resection and retrieval were complete. Multiple medium-mouthed diverticula were found in the sigmoidcolon. The exam was otherwise without abnormality. Several pockets of fairprep. Impressions/Post-Op Diagnosis: - Redundant colon. - One 3 mm polyp in the cecum, removed with a cold biopsy forceps. Resected and retrieved. - One 18 mm polyp in the transverse colon, removed with a cold snare with EMS technique. Resected and retrieved. Clips (MR conditional)were placed. - One 12 mm polyp in the descending colon, removed with a cold snare with EMS technique. Resected and retrieved. Clip (MR conditional) was placed. - Three 4 to 8 mm polyps in the descending colon, removed with a cold snare. Resected and retrieved. - Diverticulosis in the sigmoid colon. - The examination was otherwise normal. Recommendation: - Discharge patient to home. - Advance diet as tolerated. - Waiting for pathology, tentative recommendation to repeatcolonoscopy in 2 years. - Avoid NSAIDs for 1 week. - Suggest resuming miralax, 1 cap twice daily to addressconstipation. Can adjust dose to target 1 BM daily; schedule GI clinic follow up if symptoms do not improve. Wayne Car, 05/17/2024 9:26:26 AM This report has been signed electronically. Note Initiated On: 05/17/2024 7:23 AM Wayne Car MBBS PROCEDURE ORD * ROOFER ASSISTANT THIN PREP PAP SCREEN IMAGED (08/11/2020 9:00 AM RADIOLOGY AIDE) Case Report Gynecologic Cytology Report ? Case: [id number] ? Authorizing Provider: ??Demi Lopez ??Collected: ? 08/11/2020 0900 ? M, MD ? Ordering Location: ? [facility] ?Received: ?08/12/2020 1735 ? First Screen: ?Bonny Thomas ? Specimen: ?ROOFER ASSISTANT ThinPrep Vial Screening, Cervical/Vaginal ? 08/24/2020 4:08 PM [facility] INTERPRETATION/ RESULT NEGATIVE FOR INTRAEPITHELIAL LESION OR MALIGNANCY (NIL) (none) 08/24/2020 4:08 PM [facility] IMEN ADEQUACY Satisfactory for evaluation Endocervical component present 08/24/2020 4:08 PM [facility] HPV REQUEST HPV and PAP 08/24/2020 4:08 PM [facility] Date of LMP 08/24/2020 4:08 PM [facility] Comment:March 2020 Last Pap Date 07/03/2020 08/24/2020 4:08 PM [facility] Last Pap Result UNS 4:08 PM [facility] Additional Information 08/24/2020 4:08 PM [facility] Comment: Interpreted at [facility] Laboratory - [address] [facility] [address], [place] [address] Automated Review Successful 08/24/2020 4:08 PM [facility] Comment:Specimen processed s uccessfully by automated multimedia authoring specialist device, ThinPrep Imaging System, [employer] ANCILLARY TESTING ROOFER ASSISTANT HPV Ordered, Please see separate report 08/24/2020 4:08 PM [facility] Note The pap test is a screening technique, not a diagnostic procedure. It is used primarily to screen for squamous cancers and precursor lesions. Published studies have shown that it is subject to both false negative and false positive results. The pap test should not be used as the sole means to diagnose or exclude pre-malignant and malignant lesions. 08/24/2020 4:08 PM [facility] Other (Cervical/Vagina l) 08/11/2020 9:00 AM RADIOLOGY AIDE 08/12/2020 5:35 PM RADIOLOGY AIDE Demi Lopez MD PATHOLOGY/ CYTOLOGY [facility] [address] [place] [address], from Last 3 Months or Most Recently Relevant to Health Maintenance Advance Directives Documents on File Type Date Recorded Patient Quality Control Expl anation Healthcare Directive 03/31/2017 INVALID , MISSING PG 3, 03/31/2017 * Full Code (Latest Code Status on File) Date Activated Date Inactivated Comments 05/17/2024 7:15 AM 05/17/2024 12:27 PM Question Answer Comments Code Status Discussion: Unable to Assess Preferences, Provider to review later * Full Code Date Activated Date Inactivated Comments 02/16/2024 8:53 AM 02/17/2024 2:34 AM Question Answer Comments Code Status Discussion: Unable to Assess Preferences, Provider to review later Care Teams Research Intern Relationship Specialty Start Date End Date Huma Johnson MD [address] [place] [address] PCP - General Family Practice 01/29/24
--- NOTE | 2024-06-20 16:00 | CRLHL7_ITS ---
For Patients: As a result of the Century Cures Act, medical imaging exams and procedure reports are released immediately into your electronic medical record. You may view this report before your referring provider. If you have questions, please contact your health care provider. CLINICAL HISTORY: Ovarian cyst TECHNIQUE: 2D hernandez scale and color Doppler images were acquired of the pelvis using a transvaginal approach. Comparison CT and ultrasound 02/22/2024 FINDINGS: On transvaginal imaging, the myometrium has a mildly heterogeneous echotexture. The uterus measures 5.8 x 3.2 x 4.3 cm the endometrial lining appears normal and measures 3 mm in thickness. The left ovary measures 1.7 x 0.8 x 1.6 cm in size and the right ovary measures 6.5 x 3.9 x 5.9 cm. The ovaries demonstrate normal arterial and venous blood flow on color Doppler analysis. Circumscribed anechoic cyst is present apparently arising from the right ovary measuring 6.1 x 4.0 x 5.3 cm. No internal blood flow. No solid component. IMPRESSION: Simple right ovarian cyst measuring 6.1 cm. No suspicious findings. Follow-up ultrasound could be considered in 12 months. Dictated by Nestor Lipscomb MD @ 06/21/2024 10:19:23 AM (Electronically Signed)
== END 2024-06-20 15:49 | disposition home or self-care (01) ==
PROVIDERS: PCP Family Medicine; Visit Provider Obstetrics & Gynecology
DX: N94.89 Other specified conditions associated with female genital organs and menstrual cycle (principal); N83.201 Unspecified ovarian cyst, right side
CPT/HCPCS: 76830; 93976